=== PATIENT | female | born 1940 | race Caucasian/White ===

== ENCOUNTER 2023-10-03 10:35 | Outpatient (RCR) | payer OTHER, SELFPAY | END 2023-10-03 23:59 | disposition home or self-care (01) | LOC: RPT 10:35 | PROVIDERS: ATTENDING PHYSICIAN Internal Medicine | DX: F07.81 Postconcussional syndrome (principal); Z73.6 Limitation of activities due to disability; R26.2 Difficulty in walking, not elsewhere classified | CPT/HCPCS: 97110; 97162 ==

== ENCOUNTER → 2023-12-20 13:43 | Outpatient (REF) | payer OTHER, SELFPAY | LOC: RAD 13:43 | PROVIDERS: ATTENDING PHYSICIAN Internal Medicine | DX: S39.012S Strain of muscle, fascia and tendon of lower back, sequela (principal); M25.561 Pain in right knee | CPT/HCPCS: 72110; 73564 ==

== ENCOUNTER 2024-04-25 12:02 | Emergency (ER) | payer OTHER, SELFPAY ==
[2024-04-25 12:09] VITALS: BP 141/68
[2024-04-25 12:23] VITALS: BMI 27.7
--- NOTE | 2024-04-25 12:23 | ED.GENMED ---
History of Present Illness
General
Chief Complaint: Musculo-Skeletal Complaint
Time Seen by Provider: 04/25/24 12:23
History of Present Illness
History of Present Illness:
TIME OF INITIAL ENCOUNTER: 12:25 PM
HPI:
Patient came in for evaluation after a fall. Earlier today, she went back to her car and turned awkwardly and somehow fell. 'Everything landed on my left knee'. She had a left knee replacement in 2011 which concerned her so she came in here for
further evaluation. She has been able to ambulate. She also thinks that she 'wrenched my back' but denies any direct trauma to the back.
EXAM:
GENERAL: Well appearing in no distress
CERVICAL SPINE: No midline c-spine tenderness with excellent AROM
HEAD: No evidence of craniofacial trauma
CHEST: No chest wall tenderness, normal heart sounds
LUNGS: Equal lung sounds, no respiratory distress
ABDOMEN: No abdominal tenderness, no peritoneal signs
EXTREMITIES: Upper extremities and right lower extremity unremarkable. She has good active range of motion at the left hip and ankle. At the left knee, she does have some bony tenderness at the left tibial plateau region. There is some tenderness
over the patellar tendon. There is no significant tenderness over patella or distal femur or medial/lateral joint lines. She has very good active range of motion to flexion and extension.
NEURO: Excellent strength all extremities, appropriate mental status, normal speech/language
NUMBER AND COMPLEXITY OF PROBLEMS ADDRESSED AT THE ENCOUNTER
� Chronic conditions affecting care: Left knee replacement 2012, diabetes, high blood pressure
� Acute Exacerbation and/or Progression of Chronic Illness: This is an acute problem
� Differential Diagnosis includes: Periprosthetic fracture, contusion, ligamentous injury, tendon rupture
AMOUNT AND/OR COMPLEXITY OF DATA TO BE REVIEWED AND ANALYZED
� I performed an independent evaluation of and my interpretation is:
EKG:
CT:
X-rays: I personally reviewed x-rays of the left knee. I see no evidence for fracture, hardware in place.
Laboratory Studies:
Other:
� Review of other/old records: I reviewed records, the patient had a left TKA with Dr. Bryant in 2011 due to osteoarthritis
� Clinical information was obtained by an independent historian: I spoke to the daughter at bedside
� Prescriptions/Medications Considered but not given: Offered and considered analgesia however the patient states that she took analgesia prior to arrival and feels improved.
� Further testing considered but not performed:
RISK OF COMPLICATIONS AND/OR MORBIDITY OR MORTALITY OF PATIENT MANAGEMENT
� Social determinants of health affecting care: Lives at home
� Discussion with other providers:
� Escalation of care including admission/observation vs risk of discharge considered: The patient has very good active range of motion but does have tenderness near the left tibial plateau. X-rays relatively unremarkable and
showed no evidence for periprosthetic fracture.
ANY OTHER UPDATES:
12:38 PM: I reassessed patient. I see no evidence of x-ray but I told him I will call them later if radiology sees something I did not.
Past History
Past History
ED Past Medical History: Asthma, GERD, HTN, Hypercholesterolemia, NIDDM, Hypothyroidism and Other (Sleep apnea, anemia)
ED Past Surgical History: Orthopedic (Left hip replacement July 28, 2021)
Social History
Tobacco: Non-smoker
Alcohol: Occasional
Drug: None
Personal:
Living: with family
Family History
Family History: Diabetes and CAD
Phy Exam
Physical Exam
Physical Exam:
See HPI
Course
Orders/Labs/Results
Orders:
Orders
04/25/24 12:11
Knee, Left 4 or More Views [CR Knee - Left 4 Or More View*] Urgent
Comment:
Reason For Exam: pain, trauma
Vital Signs
Initial and Last Documented VS:
Initial Vital Signs
Temp Pulse Resp BP Pulse Ox
97.5 F 87 18 141/68 98
04/25/24 12:09 04/25/24 12:09 04/25/24 12:09 04/25/24 12:09 04/25/24 12:09
Last Documented Vital Signs
Temp Pulse Resp BP Pulse Ox
97.5 F 87 18 141/68 98
04/25/24 12:09 04/25/24 12:09 04/25/24 12:09 04/25/24 12:09 04/25/24 12:09
*Critical Care Note
Total Time (30-74mins, 75-104mins- exclusive of procedures): Not Applicable
ED Attending Note
-
Portions of this chart may have been created with voice recognition software.� Occasional wrong word or��sound alike� substitutions may have occurred due to the inherent limitations of voice recognition software.
Discharge Plan
Departure
Patient Disposition: Home (Routine Discharge)
Date of Disposition: 04/25/24
Time of Disposition: 12:37
Patient with high blood pressure during this ER visit?: Yes
Discharge Problem:
Contusion of knee, left
Instructions: Contusion (DC), BLOOD PRESSURE
Prescriptions:
No Action
therapeutic multivitamin Tablet
1 tab PO DAILY Qty: 0
levothyroxine [Synthroid] 112 mcg Tablet
112 mcg PO DAILY Qty: 0
albuterol sulfate 1 PUFF HFA aerosol inhaler
1 puff inhalation R Q4HPRN PRN (Reason: respiratory distress) Qty: 1 0RF
atorvastatin [Lipitor] 10 MG tablet
10 mg PO QPM
lisinopril 20 MG tablet
20 mg PO DAILY
loratadine 10 MG tablet
10 mg PO DAILY
omeprazole 20 MG tablet,delayed release (DR/EC)
20 mg PO DAILY
calcium carbonate 600 MG tablet
600 mg PO DAILY
hydrochlorothiazide 25 MG tablet
25 mg PO MOWEFR
fluticasone propionate [Flovent HFA] 1 PUFF HFA aerosol inhaler
1 puff inhalation R BID
aspirin 81 mg Tablet,Delayed Release (Dr/Ec)
81 mg PO HS
temazepam 30 mg Capsule
30 mg PO HS
metformin 500 MG tablet
1,000 mg PO BID
ferrous sulfate [FeroSul] 325 mg (65 mg iron) Tablet
325 mg PO DAILY Qty: 0 0RF
diclofenac sodium 3 % gel
1 applic topical BID Qty: 100 0RF
Referrals:
Marco Bryant MD [Active] - Follow up in 2-3 days
Activity Restrictions/Additional Instructions:
I will call you later if the radiologist sees something that I did not regarding her left knee x-ray. If pain persists, follow-up with Dr. Leija or Dr. Bryant.
Interventions
Interventions:
*Risk Screen - Suicide Last Done: 04/25/24 12:23
*General Assessment Last Done: 04/25/24 12:23
*Neglect/Abuse Screening Last Done: 04/25/24 12:23
ED- Fall Risk Assessment Last Done: 04/25/24 12:23
*ED COVID-19 Vaccine History Last Done: 04/25/24 12:23
*Nursing Disposition Last Done: 04/25/24 12:45
ED-Musculoskeletal Assessment Last Done: 04/25/24 12:23
Discharge Date and Time
Discharge Date/Time: 04/25/24 12:59
Print Language: SRI LANKAN
--- NOTE | 2024-04-25 12:34 | EDRN ---
Dr. Lau currently at the [facility] bedside
== END 2024-04-25 12:59 | disposition home or self-care (01) ==
LOC: EMR 12:02
PROVIDERS: EMERGENCY PHYSICIAN Emergency Medicine; FAMILY PHYSICIAN Internal Medicine
DX: S80.02XA Contusion of left knee, initial encounter (principal); W19.XXXA Unspecified fall, initial encounter; I10 Essential (primary) hypertension; Z96.652 Presence of left artificial knee joint
CPT/HCPCS: 99283; 73564

== ENCOUNTER → 2024-05-17 09:40 | Outpatient (REF) | payer OTHER, SELFPAY | LOC: HWWDC 09:40 | PROVIDERS: ATTENDING PHYSICIAN Internal Medicine | DX: Z12.31 Encounter for screening mammogram for malignant neoplasm of breast (principal) | CPT/HCPCS: 77063; 77067 ==

== ENCOUNTER 2024-06-08 15:18 | Emergency (ER) | payer OTHER, SELFPAY ==
[2024-06-08 15:26] VITALS: BP 164/75
--- NOTE | 2024-06-08 16:56 | ED.GENMED ---
History of Present Illness
General
Chief Complaint: Fall
Source: patient
Exam Limitations: none
Time Seen by Provider: 06/08/24 16:56
Nursing documentation reviewed up to this point in time: agreed with
History of Present Illness
History of Present Illness:
83-year-old female with a past medical history of asthma, hypertension, diabetes presents emergency department today with concerns of left elbow pain and left shoulder pain following a fall. Patient uses a walker to ambulate at baseline. Patient
states that she was walking out of [employer] today when she stepped down the stairs and lost her footing and fell slowly onto her left side, holding her walker at the time. Patient states that she did not hit her head or injure her neck during this.
She denies any neck pain or headache. She states that she has abrasion to her left elbow. She denies any loss of consciousness. Patient has not had any dizziness or lightheadedness prior to the fall. She denies chest pain or shortness of breath.
Patient states that she is able to ambulate with her walker now without difficulty. Patient states that the pain is not as severe and she has not had to take any medication however the pain did persist after the fall and so she decided to checked
out. Patient does not take any blood thinners.
Past History
Past History
ED Past Medical History: Asthma, GERD, HTN, Hypercholesterolemia, NIDDM, Hypothyroidism and Other (Sleep apnea, anemia)
ED Past Surgical History: Orthopedic (Left hip replacement July 28, 2021)
Social History
Tobacco: Non-smoker
Alcohol: Occasional
Drug: None
Personal:
Living: with family
Family History
Family History: Diabetes and CAD
Review of Systems
Review of Systems
All Other Systems: ROS reviewed and negative except as documented in HPI and ROS
Phy Exam
Physical Exam
Physical Exam:
General: Patient is well appearing and in no acute distress; non-toxic
Skin: Warm and dry, small abrasion noted to left elbow, no active
Head: Normocephalic, atraumatic, no palpable hematomas of the scalp
Eyes: Sclera non-icteric. EOMs intact. PERRLA.
Neck: No tenderness to palpation of the cervical spine
Cardiac: Regular rate and rhythm, no murmurs
Peripheral Vascular: No lower extremity swelling or edema
Pulm: Normal respiratory effort
Musculoskeletal: No tenderness to palpation of the left elbow and left shoulder. Full range of motion of left elbow and left shoulder, no pain with passive range of motion.
Neuro: CN II-XII intact, no focal neurologic deficits.
Psychiatric: Appropriate mood and affect.
Course
Orders/Labs/Results
Orders:
Orders
06/08/24 15:31
CR Elbow - Left Min 3 Views Urgent
Comment:
Reason For Exam: fall
CR Shoulder, Trauma - Left Urgent
Comment:
Reason For Exam: fall
Vital Signs
Initial and Last Documented VS:
Initial Vital Signs
Temp Pulse Resp BP Pulse Ox
98.1 F 87 20 164/75 94
06/08/24 15:26 06/08/24 15:26 06/08/24 15:26 06/08/24 15:26 06/08/24 15:26
Last Documented Vital Signs
Temp Pulse Resp BP Pulse Ox
98.1 F 87 20 164/75 94
06/08/24 15:26 06/08/24 15:26 06/08/24 15:26 06/08/24 15:26 06/08/24 15:26
MDM/Problems Addressed
Differential Diagnosis Includes:
see below
MDM/Problems Addressed:
NUMBER AND COMPLEXITY OF PROBLEMS ADDRESSED AT THE ENCOUNTER
� Chronic conditions affecting care: Asthma, hypertension, GERD
� Acute Exacerbation and/or Progression of Chronic Illness: n/a
� Differential Diagnosis includes: Heme fracture, distal radius fracture, ulnar fracture, musculoskeletal sprain/strain
AMOUNT AND/OR COMPLEXITY OF DATA TO BE REVIEWED AND ANALYZED
� I performed an independent evaluation of and my interpretation is:
X-rays: No acute fracture or dislocation
Laboratory Studies: No indication for lab work at this
Other:
� Review of other/old records: Reviewed records in [facility], reviewed ER physician documentation from 04/25/2022, patient for seen for contusion of the knee and discharge, review discharge summary from 12/15/2022 patient seen for syncope of
dehydration had KEMAR
� Clinical information was obtained by an independent historian: n/a
� Prescriptions/Medications Considered but not given:
� Further testing considered but not performed: n/a
RISK OF COMPLICATIONS AND/OR MORBIDITY OR MORTALITY OF PATIENT MANAGEMENT
� Social determinants of health affecting care: none
� Discussion with other providers: ER attending
� Escalation of care including admission/observation vs risk of discharge considered:
83-year-old female presents emergency department today with concerns of left shoulder pain and left elbow pain. On exam she is well-appearing no acute distress. She fell today while exiting [employer]. She not hit her head when she fell, she insists
this to be true. She is not taking blood thinners. She has no neck pain. She no dizziness prior to the fall. Physical exam she is a skin tear noted to the left elbow but has no pain with range of motion of the elbow and shoulder. She is no
palpable bony deformities. X-rays negative. Local wound care done. Patient stable for discharge. Patient does follow with Dr. Leija I recommended that she follow-up with him should she have any persistent symptoms.
*Critical Care Note
Total Time (30-74mins, 75-104mins- exclusive of procedures): Not Applicable
ED Attending Note
-
Portions of this chart may have been created with voice recognition software.� Occasional wrong word or��sound alike� substitutions may have occurred due to the inherent limitations of voice recognition software.
Discharge Plan
Departure
Patient Disposition: Home (Routine Discharge)
Date of Disposition: 06/08/24
Time of Disposition: 17:21
Patient with high blood pressure during this ER visit?: Yes
Condition: Good
Discharge Problem:
Left elbow pain, Fall, Left shoulder pain
Instructions: Wound Care (DC), Preventing falls in adults, BLOOD PRESSURE
Prescriptions:
No Action
therapeutic multivitamin Tablet
1 tab PO DAILY Qty: 0
levothyroxine [Synthroid] 112 mcg Tablet
112 mcg PO DAILY Qty: 0
albuterol sulfate 1 PUFF HFA aerosol inhaler
1 puff inhalation R Q4HPRN PRN (Reason: respiratory distress) Qty: 1 0RF
atorvastatin [Lipitor] 10 MG tablet
10 mg PO QPM
lisinopril 20 MG tablet
20 mg PO DAILY
loratadine 10 MG tablet
10 mg PO DAILY
omeprazole 20 MG tablet,delayed release (DR/EC)
20 mg PO DAILY
calcium carbonate 600 MG tablet
600 mg PO DAILY
hydrochlorothiazide 25 MG tablet
25 mg PO MOWEFR
fluticasone propionate [Flovent HFA] 1 PUFF HFA aerosol inhaler
1 puff inhalation R BID
aspirin 81 mg Tablet,Delayed Release (Dr/Ec)
81 mg PO HS
temazepam 30 mg Capsule
30 mg PO HS
metformin 500 MG tablet
1,000 mg PO BID
ferrous sulfate [FeroSul] 325 mg (65 mg iron) Tablet
325 mg PO DAILY Qty: 0 0RF
diclofenac sodium 3 % gel
1 applic topical BID Qty: 100 0RF
Referrals:
Anibal Chappell DO [Family Provider] -
Activity Restrictions/Additional Instructions:
PLEASE RETURN TO THE EMERGENCY DEPARTMENT SHOULD YOU EXPERIENCE CHEST PAIN, SHORTNESS OF BREATH, HEADACHE, DIZZINESS, INABILITY TO MOVE YOUR ELBOW OR SHOULDER, PERSISTENT BLEEDING, PALLOR, LOSS OF SENSATION IN YOUR ARM, OR ANY OTHER SIGNS OR
SYMPTOMS WORRISOME TO YOU.
Please follow-up with Dr. Leija should your symptoms fail to improve.
Interventions
Interventions:
*Risk Screen - Suicide Last Done: 12/14/24 15:26
*General Assessment Last Done: 06/08/24 15:26
*Neglect/Abuse Screening Last Done: 06/08/24 15:26
*Nursing Disposition Last Done: 06/08/24 18:00
ED-Musculoskeletal Assessment Last Done: 06/08/24 16:52
ED- Neurological Assessment Last Done: 06/08/24 16:52
ED-Skin Assessment Last Done: 06/08/24 16:52
Discharge Date and Time
Discharge Date/Time: 06/08/24 18:01
Print Language: AMHARIC
== END 2024-06-08 18:01 | disposition home or self-care (01) ==
LOC: EMR 15:18
PROVIDERS: EMERGENCY PHYSICIAN Student in an Organized Health Care Education/Training Program; FAMILY PHYSICIAN Internal Medicine
DX: S51.012A Laceration without foreign body of left elbow, initial encounter (principal); M25.512 Pain in left shoulder; W10.9XXA Fall (on) (from) unspecified stairs and steps, initial encounter; E78.00 Pure hypercholesterolemia, unspecified; I10 Essential (primary) hypertension; J45.909 Unspecified asthma, uncomplicated; E03.9 Hypothyroidism, unspecified; E11.9 Type 2 diabetes mellitus without complications; G47.30 Sleep apnea, unspecified; K21.9 Gastro-esophageal reflux disease without esophagitis
CPT/HCPCS: 99283; 73030; 73080

== ENCOUNTER 2024-09-20 17:26 | Observation (INO) | payer MEDICARE, SELFPAY ==
[2024-09-20] VITALS (9 sets, daily range): BP systolic 131–177; BP diastolic 60–158; BMI 33.8
--- NOTE | 2024-09-20 10:08 | ED.GENMED ---
History of Present Illness
<Sandor Dodd PA-C - Last Filed: 09/20/24 15:16>
General
Chief Complaint: Fainting/Passed Out
Source: patient
Time Seen by Provider: 09/20/24 09:58
History of Present Illness
History of Present Illness:
84-year-old female presents from home where she lives by herself after being found on the front porch by her neighbor. Patient states she must have gotten up throughout the night at some point. She found her self on the porch. Her neighbor found
her to be confused initially. She did not think she was at her own house where she was. She now feels clear. She notes pain to the lower back and right ankle. She may have fallen on the porch. She is not anticoagulated. History of
hfh-zvkipmz-sxopioptq diabetes. No other complaints
Past History
<Sadnor Dodd PA-C - Last Filed: 09/20/24 15:16>
Past History
ED Past Medical History: Asthma, GERD, HTN, Hypercholesterolemia, NIDDM, Hypothyroidism and Other (Sleep apnea, anemia)
ED Past Surgical History: Orthopedic (Left hip replacement July 28, 2021)
Social History
Tobacco: Non-smoker
Alcohol: Occasional
Drug: None
Personal:
Living: with family
Family History
Family History: Diabetes and CAD
Phy Exam
<Sandor Dodd PA-C - Last Filed: 09/20/24 15:16>
Physical Exam
Physical Exam:
General: Well-appearing female no acute respiratory distress
HEENT: Normocephalic atraumatic
Heart: RRR no murmurs
Lungs: Clear no wheeze
Musculoskeletal exam: Patient is tender over the lumbosacral junction on the right side as well as the right ankle.
Neurologic exam: Alert and oriented no facial asymmetry no drift on exam no dysarthria or aphasia
Abdomen is soft nontender nondistended
Course
<Sandor Dodd PA-C - Last Filed: 09/20/24 15:16>
Orders/Labs/Results
Orders:
Orders
09/20/24 09:33
Electrocardiogram (*1) Urgent
Reason for Study: Syncope
EKG- Treatment ONCE
09/20/24 10:06
CR Ankle - Right Min 3 Views * Urgent
Comment:
Reason For Exam: fall
CR Lumbar Spine 2 Or 3 Views Urgent
Comment:
Reason For Exam: back pain, fall
09/20/24 10:07
CT Head W/o Iv Contrast Urgent
Comment:
Reason For Exam: confusion, fall
09/20/24 10:33
Ketorolac [Toradol] 15 mg IV NOW STA
09/20/24 10:44
Alcohol Urgent
COVID-19 Antigen Urgent
Source: Nasal Swab
Complete Blood Count/With Diff Urgent
Comprehensive Metabolic Panel Urgent
Glycohemoglobin (HgbA1c) Urgent
Influenza A+B Rapid Molecular Urgent
NEGIN Source: Nasal Swab
Specimen Description:
09/20/24 13:59
Urinalysis Reflex To Culture Urgent
Date Specimen was Collected: 09/20/24
Time Specimen was Collected: 13:57
Urine Microscopic Reflex Cult Urgent
Urine Culture Urgent
NEGIN Source: U
Specimen Description:
Date Specimen was Collected: 09/20/24
Time Specimen was Collected: 13:57
09/20/24 14:58
CefTRIAXone [Rocephin] 1,000 mg IV NOW STA
09/20/24 15:17
Add On- LAB Urgent
Tests Added?: blood alcohol level, A1C
Abnormal Lab Results
09/20/24 09/20/24
10:44 13:59
RBC 3.76 L 10^6/uL
(4.20-5.40)
Hgb 10.6 L g/dL
(12.0-16.0)
Hct 31.9 L %
(37.0-47.0)
Absolute Neuts (auto) 7.8 H 10^3/uL
(1.4-6.5)
Absolute Lymphs (auto) 1.0 L 10^3/uL
(1.2-3.4)
Absolute Monos (auto) 0.8 H 10^3/uL
(0.1-0.6)
Neutrophils % 80.4 H %
(42.2-75.2)
Lymphocytes % 10.4 L %
(20.5-51.1)
BUN 18 H mg/dl
(7-17)
Glucose 138 H mg/dl
(70-99)
Urine Ketones 3+ A
(Negative)
Ur Occult Blood Reflex 1+ A
(Negative)
Urine Nitrite (Reflex) Positive A
(Negative)
Leukocyte Esterase Rfl 2+ A
(Negative)
Urine RBC 3-6 A /HPF
(0-2)
Urine WBC (Reflex) 26-30 A /HPF
(0-5)
Urine Bacteria (Reflex) Many A
(Negative)
Urine Albumin (Reflex) 2+ A
(Neg - Trace)
09/20/24 10:44
09/20/24 10:44
Vital Signs
Initial and Last Documented VS:
Initial Vital Signs
Temp Pulse Resp BP Pulse Ox
36.7 C 87 16 150/78 98
09/20/24 09:29 09/20/24 09:29 09/20/24 09:29 09/20/24 09:29 09/20/24 09:29
Last Documented Vital Signs
Temp Pulse Resp BP Pulse Ox
36.7 C 83 18 148/78 98
09/20/24 09:29 09/20/24 15:00 09/20/24 15:00 09/20/24 14:00 09/20/24 11:49
<Brenden Alfaro MD - Last Filed: 09/20/24 15:40>
Orders/Labs/Results
Orders:
Orders
09/20/24 09:33
Electrocardiogram (*1) Urgent
Reason for Study: Syncope
EKG- Treatment ONCE
09/20/24 10:06
CR Ankle - Right Min 3 Views * Urgent
Comment:
Reason For Exam: fall
CR Lumbar Spine 2 Or 3 Views Urgent
Comment:
Reason For Exam: back pain, fall
09/20/24 10:07
CT Head W/o Iv Contrast Urgent
Comment:
Reason For Exam: confusion, fall
09/20/24 10:33
Ketorolac [Toradol] 15 mg IV NOW STA
09/20/24 10:44
Alcohol Urgent
COVID-19 Antigen Urgent
Source: Nasal Swab
Complete Blood Count/With Diff Urgent
Comprehensive Metabolic Panel Urgent
Glycohemoglobin (HgbA1c) Urgent
Influenza A+B Rapid Molecular Urgent
NEGIN Source: Nasal Swab
Specimen Description:
09/20/24 13:59
Urinalysis Reflex To Culture Urgent
Date Specimen was Collected: 09/20/24
Time Specimen was Collected: 13:57
Urine Microscopic Reflex Cult Urgent
Urine Culture Urgent
NEGIN Source: U
Specimen Description:
Date Specimen was Collected: 09/20/24
Time Specimen was Collected: 13:57
09/20/24 14:58
CefTRIAXone [Rocephin] 1,000 mg IV NOW STA
09/20/24 15:17
Add On- LAB Urgent
Tests Added?: blood alcohol level, A1C
Abnormal Lab Results
09/20/24 09/20/24
10:44 13:59
RBC 3.76 L 10^6/uL
(4.20-5.40)
Hgb 10.6 L g/dL
(12.0-16.0)
Hct 31.9 L %
(37.0-47.0)
Absolute Neuts (auto) 7.8 H 10^3/uL
(1.4-6.5)
Absolute Lymphs (auto) 1.0 L 10^3/uL
(1.2-3.4)
Absolute Monos (auto) 0.8 H 10^3/uL
(0.1-0.6)
Neutrophils % 80.4 H %
(42.2-75.2)
Lymphocytes % 10.4 L %
(20.5-51.1)
BUN 18 H mg/dl
(7-17)
Glucose 138 H mg/dl
(70-99)
Urine Ketones 3+ A
(Negative)
Ur Occult Blood Reflex 1+ A
(Negative)
Urine Nitrite (Reflex) Positive A
(Negative)
Leukocyte Esterase Rfl 2+ A
(Negative)
Urine RBC 3-6 A /HPF
(0-2)
Urine WBC (Reflex) 26-30 A /HPF
(0-5)
Urine Bacteria (Reflex) Many A
(Negative)
Urine Albumin (Reflex) 2+ A
(Neg - Trace)
09/20/24 10:44
09/20/24 10:44
Vital Signs
Initial and Last Documented VS:
Initial Vital Signs
Temp Pulse Resp BP Pulse Ox
36.7 C 87 16 150/78 98
09/20/24 09:29 09/20/24 09:29 09/20/24 09:29 09/20/24 09:29 09/20/24 09:29
Last Documented Vital Signs
Temp Pulse Resp BP Pulse Ox
36.7 C 83 18 148/78 98
09/20/24 09:29 09/20/24 15:00 09/20/24 15:00 09/20/24 14:00 09/20/24 11:49
<Sandor Dodd PA-C - Last Filed: 09/20/24 15:16>
MDM/Problems Addressed
Differential Diagnosis Includes:
Patient with episode of confusion and weakness. Found her self on her front porch overnight. Will check labs. CT head x-ray lumbar spine and right ankle. Differential could include sleep walking episode versus infectious source such as UTI COVID
or flu or electrolyte abnormality
<Sandor Dodd PA-C - Last Filed: 09/20/24 15:16>
*Critical Care Note
Total Time (30-74mins, 75-104mins- exclusive of procedures): Not Applicable
<Sandor Dodd PA-C - Last Filed: 09/20/24 15:16>
Update Note
Update Note:
Workup consistent with UTI. CT head shows older stroke. Discussed with emergency room attending who saw the patient as well. Given her age and episode of encephalopathy overnight it is unclear the etiology of this but will keep in hospital for
further evaluation
ED Attending Note
<Sandor Dodd PA-C - Last Filed: 09/20/24 15:16>
-
Portions of this chart may have been created with voice recognition software.� Occasional wrong word or��sound alike� substitutions may have occurred due to the inherent limitations of voice recognition software.
<Brenden Alfaro MD - Last Filed: 09/20/24 15:40>
ED Attending Note
Patient seen and examined by attending physician: Yes
ED Attending Note:
I have seen and evaluated the patient with a [id number] encounter. I have spoken to the advance practicer provider and involved in the medical history, the physical exam, medical decision making.
Evaluation and management service: agree unless noted differently below.
Results interpretation: agree unless noted differently below.
Focused HPI: 84-year-old female with history as documented presents to the ER for evaluation after fall on her porch and episode of confusion/amnesia. Patient says that she was in her normal state of health last night. She says that this morning
she woke up in the very hr advisor and was on the ground on her front porch. She says initially she did not realize where she was she had to call someone who was walking by to help her up. She says that she asked them to bring her home and then
she realized that she was at her home on the front porch. Came to the emergency to be evaluated. She said she has some soreness in her shoulders, some right ankle pain and low back pain. She denies any headache. Mild nausea. She says she does
not feel confused any longer. She cannot recall any change in her vision or focal weakness/numbness. She denies any other complaints.
Physical exam: Awake and alert, oriented x 3. Marginal hypertension otherwise normal vitals. Her abdomen is soft and nontender to deep palpation. She has no chest wall tenderness. She has no cardiac rubs gallops or murmurs and regular rhythm on
auscultation. Her lungs sound clear to auscultation bilaterally. She has no bruising or abrasions to the back or flank she does have some mild paraspinal tenderness in the lumbar region. No cervical spine tenderness and her head is atraumatic.
She has some minor abrasions which appear old on the upper extremities. No signs of acute trauma to the lower extremities. Good range of motion in all extremities without apparent pain. She has no cranial nerve deficits, speech is fluid, no focal
motor or sensory deficits.
Medical Decision Makin-year-old female presents for evaluation after waking up on her porch confused this morning. She cannot recall how she got there, cannot recall falling. Vitals and exam as above. Labs sent off including a CBC which shows
marginal anemia, CMP no clinically significant abnormalities. Urinalysis concerning for infection versus contaminated sample. COVID and flu negative. CT head shows old stroke no acute finding. Likely lumbar compression fracture. X-ray of the
ankle no fracture. Unclear if this was TGA versus TIA versus some encephalopathy related to UTI. Will plan admit for observation, cover with Rocephin.
Discharge Plan
Departure
Patient Disposition: Admit
Date of Disposition: 09/20/24
Time of Disposition: 15:16
Presentation/result/management discussed w/ accepting MD/DO: Hospitalist
Discharge Problem:
Acute UTI
Prescriptions:
No Action
therapeutic multivitamin Tablet
1 tab PO DAILY Qty: 0
levothyroxine [Synthroid] 112 mcg Tablet
112 mcg PO DAILY Qty: 0
albuterol sulfate 1 PUFF HFA aerosol inhaler
1 puff inhalation R Q4HPRN PRN (Reason: respiratory distress) Qty: 1 0RF
atorvastatin [Lipitor] 10 MG tablet
10 mg PO QPM
lisinopril 20 MG tablet
20 mg PO DAILY
loratadine 10 MG tablet
10 mg PO DAILY
omeprazole 20 MG tablet,delayed release (DR/EC)
20 mg PO DAILY
calcium carbonate 600 MG tablet
600 mg PO DAILY
fluticasone propionate [Flovent HFA] 1 PUFF HFA aerosol inhaler
2 puff inhalation R BID
aspirin 81 mg Tablet,Delayed Release (Dr/Ec)
81 mg PO HS
zolpidem 10 mg Tablet
10 mg PO HS
Arnuity Ellipta 200 mcg/actuation Blister With Device
1 inh INHALATION DAILY
Referrals:
Anibal Chappell DO [Family Provider] -
Interventions
Interventions:
*Risk Screen - Suicide Last Done: 09/20/24 09:29
*General Assessment Last Done: 09/20/24 12:00
*Neglect/Abuse Screening Last Done: 09/20/24 09:29
*ED- Fall Risk Assessment Last Done: 09/20/24 10:58
*ED COVID-19 Vaccine History Last Done: 09/20/24 10:58
ED- Cardiac Assessment Last Done: 09/20/24 10:58
ED- Neurological Assessment Last Done: 09/20/24 10:58
Discharge Date and Time
Print Language: AFGHAN
[2024-09-20] MEDS: TORADOL 15 MG IV ×2 (10:46→18:01)
[2024-09-20 11:00] LABS: % Basophils 0.4 % (0-2); % Immature Granulocytes 0.3 % (0-0.5); % Lymphocytes 10.4 % (20.5-51.1); % Monocytes 8.5 % (1.7-9.3); % Neutrophils 80.4 % (42.2-75.2); Absolute Monocytes 0.8 10^3/uL (0.1-0.6); Absolute Neutrophils 7.8 10^3/uL (1.4-6.5); Hematocrit 31.9 % (37.0-47.0); Hemoglobin 10.6 g/dL (12.0-16.0); Mean Corp Hgb Conc. 33.2 g/dL (33.0-37.0); Mean Corpuscular Hgb 28.2 pg (27.0-31.0); Mean Corpuscular Volume 84.8 fL (81.0-99.0); Mean Platelet Volume 9.7 fL (7.4-10.4); Nucleated Red Blood Cells % 0 %; Platelet Count 215 10^3/uL (130-400); Red Blood Cell Count 3.76 10^6/uL (4.20-5.40); Red Cell Dist. Width 13.7 % (11.5-14.5); White Blood Cell Count 9.7 10^3/uL (4.8-10.8)
[2024-09-20 11:14] LABS: ALT (SGPT) 16 U/L (0-35); AST (SGOT) 29 U/L (14-36); Albumin 4.1 g/dl (3.5-5.0); Alkaline Phosphatase 71 U/L (38-126); Blood Urea Nitrogen 18 mg/dl (7-17); Calcium 10.1 mg/dl (8.4-10.2); Carbon Dioxide 25 mmol/L (22-30); Chloride 104 mmol/L (98-107); Estimated Creatinine Clearance 73 ml/min; Glucose 138 mg/dl (70-99); Potassium 4.1 mmol/L (3.5-5.1); Sodium 138 mmol/L (135-145); Total Bilirubin 0.8 mg/dl (0.2-1.3); Total Protein 6.5 g/dl (6.3-8.2); eGFR > 60.00
[2024-09-20 11:16] LABS: COVID-19 Antigen Negative (Negative)
[2024-09-20 14:05] LABS: Urine Albumin 2+ (Neg - Trace); Urine Bilirubin Negative (Negative); Urine Character Slightly Cloudy (Clear); Urine Color Yellow; Urine Glucose Negative (Negative); Urine Ketone 3+ (Negative); Urine Leukocyte 2+ (Negative); Urine Nitrite Positive (Negative); Urine Occult Blood 1+ (Negative); Urine Urobilinogen 1+ (Neg - 1+)
[2024-09-20 14:27] LABS: Urine Squamous Cell >30 /LPF (Few)
[2024-09-20 14:29] LABS: Urine Amorphous Seen; Urine White Cell 26-30 /HPF (0-5)
[2024-09-20 14:30] LABS: Urine Bacteria Many (Negative)
[2024-09-20] MEDS: ROCEPHIN 1000 MG IV (15:12)
--- NOTE | 2024-09-20 15:27 | HPS.HSE ---
Addendum entered and electronically signed by Kymberly Byers MD 09/20/24 18:30:
I personally performed a history and physical exam of the patient and discussed management with the resident. I reviewed the resident's note and agree with the documented findings and plan of care HPI/CC.
GENERAL: well developed, well nourished, female in no apparent distress
HEENT: NC/AT
HEART: regular rate and rhythm, +S1, +S2
LUNGS : clear to auscultation bilaterally
ABDOM: soft, nontender, nondistended, + bowel sounds
EXT: no cyanosis, clubbing--mild swelling to right leg--left leg with knee replacement scar c/d/i
NEUROLOGIC: grossly intact
Toxic metabolic encephalopathy--resolved-- most likely secondary to polypharmacy and medication side effects--counseled on limiting opioid use, and caution with multiple medications including opioids, zolpidem, benzodiazepine as well as
alcohol--less likely due to infection as her mental status improved prior to the administration of antibiotics; less likely stroke as head CT negative for acute intracranial stroke/hemorrhage and no focal neurologic deficits--while in hospital,
avoid opioids if possible and reduced dose of zolpidem
Osteoarthritis, chronic pain, fall with chronic ambulatory dysfunction--x-rays obtained in ED showed vertebral compression fracture and chronic changes, nothing requiring acute intervention--physical exam consistent with arthritic inflammation, less
suspicious of DVT but will check venous ultrasound --will observe overnight to provide pain management and evaluation by physical therapy in a.m. to determine outpatient needs--standing Tylenol, Toradol; avoid opioid use
Abnormal urinalysis vs asymptomatic bacteruria--UA more consistent with contamination/not a clean-catch --doubt UTI contributing to encephalopathy --s/p 1 dose of ceftriaxone in ED, no need to continue antibiotics
Diabetes type 2, [id number]--Home regimen includes metformin --will check A1c, consider Accu-Cheks/ISS, continue diabetic diet
Hypertension--continue home lisinopril with holding parameters
Hypothyroidism--continue home Synthroid
Asthma--continue home inhalers or equivalent
Hyperlipidemia--continue home atorvastatin
Insomnia--caution with home zolpidem dose, will reduce dose inpatient
Sleep apnea--continue home CPAP
Anticipate discharge tomorrow, pending PT OT eval
DVT prophylaxis: Lovenox
code status -- DNR
Original Note:
Family Physician
-
Family Physician: Anibal Chappell
Chief Complaint
-
Confusion and fall last night
History of Present Illness
84-year-old female with past medical history of osteoarthritis s/p multiple Ortho surgeries, hypertension, diabetes, hyperlipidemia who presents to the emergency room from home (lives alone) with her daughter for evaluation of confusion/fall last
night. Last night, she had an episode of confusion where she thought a family member was present and told her to wait on the porch of her house. At that time she did not recognize that this was her home, and she does not know how long she was
standing outside in a nightgown. She was not dressed for the weather and remembers feeling cold and trying to cover herself with the patio cushions for warmth. Her next memory is calling out for help because she was on the ground and could not get
up. She does not know how she fell, she does not remember feeling in pain at that time, and does not know if she hit her head. A bystander helped her up and called the police for assistance. At that time she did not recognize her house from the
outside, but once she got inside knew it was her home. She declined to go to the hospital, and the police called her daughter around 4:40 AM to report the situation. She says that she has only slept walked once in her life: After her hip surgery
when she took hydrocodone 3 years ago. Upon further questioning, she admits to increasing pain of her right leg over the past week or 2, for which she was just prescribed tramadol on Monday. She tried the tramadol but had side effects like
itching, so on night she switched to hydrocodone which she had leftover from her hip surgery. However she is not positive if she took this or how many she took. Of note she takes Ambien nightly for chronic insomnia.
Today, she reports feeling at her baseline cognitive status. Her daughter at bedside agrees. Review of systems negative-- denies fevers, chills, dizziness, chest pain, palpitations, shortness of breath, abdominal pain, nausea, vomiting, diarrhea,
constipation, dysuria. She does report worsening pain in her right leg, for which she is seeing orthopedics outpatient and scheduled for an MRI on .
Medical History
Past Medical History
Past Medical History: Reports Asthma, GERD, HTN, Hypercholesterolemia, Hypothyroidism, NIDDM and Other (Sleep apnea, anemia, kidney stone)
Past Surgical History: Reports Gynocological, Orthopedic (Left hip, right hip, left knee) and Tonsilectomy
Social History
Tobacco: Non-smoker
Alcohol: Occasional (No alcohol use contributing to current episode of confusion)
Drug: None
Living: Alone
Family History
Family History: Not pertinent
Allergies / Home Medications
Allergies reflects when Allergies were last updated in [facility].
Home Medications with original date entered in [facility]
Allergy/Medication List:
Allergies
Allergy/AdvReac Type Severity Reaction Status Date / Time
No Known Allergies Allergy Verified 09/20/24 09:32
Home Medications
levothyroxine 112 mcg tablet (Synthroid) 112 mcg PO DAILY Thyroid ##0 10/11/11
therapeutic multivitamin 1 tab PO DAILY Supplement ##0 10/11/11
albuterol sulfate 90 mcg/actuation aerosol inhaler 1 puff inhalation R Q4HPRN PRN respiratory distress ##1 11/04/15
atorvastatin 10 mg tablet (Lipitor) 10 mg PO QPM High cholesterol 07/07/21
calcium carbonate 600 mg PO DAILY Supplement 07/07/21
fluticasone propionate 110 mcg/actuation HFA aerosol inhaler (Flovent HFA) 2 puff inhalation R BID Lung/breathing issues 07/07/21
lisinopril 20 mg tablet 20 mg PO DAILY Blood pressure 07/07/21
loratadine 10 mg tablet 10 mg PO DAILY Allergies 07/07/21
omeprazole 20 mg tablet,delayed release 20 mg PO DAILY Gastrointestinal issue 07/07/21
aspirin 81 mg tablet,delayed release 81 mg PO HS Blood Clot Prevention/Tx 12/13/22
fluticasone furoate 200 mcg/actuation blister powder for inhalation (Arnuity Ellipta) 1 inh inhalation DAILY 09/20/24
zolpidem 10 mg tablet 10 mg PO HS 09/20/24
Review of Systems
-
History Source: Patient
Constitutional: Reports Sleep Disturbance (See HPI); Denies Fever or Chills
EENT: Reports No Symptoms
Respiratory: Reports No Symptoms; Denies Cough, Hemoptysis or Trouble Breathing
Cardiac: Reports No Symptoms; Denies Chest Pain, Palpitations or Syncope
Abdomen/GI: Reports No Symptoms; Denies Abdominal Pain, Nausea, Vomiting, Diarrhea or Constipated
: Reports No Symptoms; Denies Dysuria, Flank Pain or Difficulty Voiding
Musculoskeletal: Reports See HPI
Skin: Reports No Symptoms and Itching (Resolved)
Neurological: Reports No Symptoms; Denies Dizzy, Headache, Weakness or Numbness
Endocrine: Reports No Symptoms
Hematologic/Lymphatic: Reports No Symptoms
Psych: Reports See HPI
Physical Exam
Vital Signs
Vital Signs
Temp Pulse Resp BP Pulse Ox
98.0 F 83 18 148/78 98
09/20/24 09:29 09/20/24 15:00 09/20/24 15:00 09/20/24 14:00 09/20/24 11:49
Physical Exam
General: Well Developed, Well Nourished, No Apparent Distress, Comfortable, Conversant and Obese
HEENT: NormoCephalic and Atraumatic
Respiratory: Clear (Anterior lung pretty) and Non Labored Respirations
Cardiac: S1/S2 and Regular Rhythm
GI: Soft, Non Tender, Non Distended and Normal Bowel Sounds
Musculoskeletal: No Clubbing, No Cyanosis and Edema, Right Lower Extremity (Diffuse swelling of right lower extremity with some erythema)
Skin: Warm and Dry
Neuro: Awake, Alert, AO x 3 and Nonfocal/grossly intact; No Slurred Speech, Facial Droop or Tremors
Psych: Calm and Intact Judgment/Insight; No Confused
Laboratory Results
-
09/20/24 10:44
09/20/24 10:44
Laboratory Results
Total Bilirubin 0.8 mg/dl (0.2-1.3) 09/20/24 10:44
AST 29 U/L (14-36) 09/20/24 10:44
ALT 16 U/L (0-35) 09/20/24 10:44
Alkaline Phosphatase 71 U/L (38-126) 09/20/24 10:44
Data Reviewed
-
Diagnostic Radiology: Image Personally Visualized and interpreted and Report Reviewed by me
Lab Data: Labs Reviewed by me and Discussed with Physician
Impression/Plan
-
84-year-old female presenting for episode of confusion/fall
Toxic metabolic encephalopathy--resolved-- most likely secondary to polypharmacy and medication side effects--counseled on limiting opioid use, and caution with multiple medications including opioids, zolpidem, benzodiazepine as well as
alcohol--less likely due to infection as her mental status improved prior to the administration of antibiotics; less likely stroke as head CT negative for acute intracranial stroke/hemorrhage and no focal neurologic deficits--while in hospital,
avoid opioids if possible and reduced dose of zolpidem
Osteoarthritis, chronic pain, fall with chronic ambulatory dysfunction--x-rays obtained in ED showed vertebral compression fracture and chronic changes, nothing requiring acute intervention--physical exam consistent with arthritic inflammation, less
suspicious of DVT but will check venous ultrasound --will observe overnight to provide pain management and evaluation by physical therapy in a.m. to determine outpatient needs--standing Tylenol, Toradol; avoid opioid use
Abnormal urinalysis vs asymptomatic bacteruria--UA more consistent with contamination/not a clean-catch than cystitis--doubt UTI contributing to encephalopathy as medication side effects above explained presentation better--s/p 1 dose of ceftriaxone
in ED, no need to continue antibiotics
Diabetes type 2, [id number]--Home regimen includes metformin --will check A1c, consider Accu-Cheks/ISS, continue diabetic diet
Hypertension--continue home lisinopril
Hypothyroidism--continue home Synthroid
Asthma--continue home inhalers or equivalent
Hyperlipidemia--continue home atorvastatin
Insomnia--caution with home zolpidem dose, will reduce dose inpatient
Sleep apnea--continue home CPAP
Anticipate discharge tomorrow, pending PT OT eval
DVT prophylaxis: Lovenox
[2024-09-20 16:12] LABS: Alcohol None Detected
--- NOTE | 2024-09-20 17:16 | EDRN ---
Pt says she went outside to her porch sometime early this morning and she does not remember doing so. Pt was in her nightgown, assumes she fell because she was on the ground. Pt looked at her watch and knows she was on the ground at 0300. She saw
someone walking by couple hours later and asked the person to call 911. EMS arrived, pt assisted into her house. Pt declined transport to hospital at that time. Later, pt noted aches and pains and a neighbor brought her to ED for evaluation. Pt
has chronic R knee pain, says she needs to get her knee replaced. Pt ices R knee at nighttime. Pain has been hindering pt's daily activities. Slight pain R lateral foot where she sustained some abrasions. Pt denies cp, sob, abd pain, n/v,
headache, dizziness, weakness, urinary symptoms, fever/chills/cough, neck pain. Back is sore.
[2024-09-20] MEDS: LOVENOX 40 MG SC (20:40)
[2024-09-20] MEDS: LIPITOR 10 MG PO (20:41)
[2024-09-20] MEDS: AMBIEN 5 MG PO (20:41)
[2024-09-20] MEDS: TYLENOL 650 MG PO (20:41)
[2024-09-20] MEDS: GLUCOPHAGE 1000 MG PO (20:41)
[2024-09-20] MEDS: ASPIR LOW (ENTERIC COATED) 81 MG PO (20:42)
[2024-09-20] MEDS: REFRESH EYE DROPS (PF) 1 DROPS OPHTH (20:42)
[2024-09-20] MEDS: LIPITOR PO (21:22)
[2024-09-20 23:23] LABS: Glucose - Point of Care 110 mg/dl (70-99)
[2024-09-21] MEDS: TORADOL 15 MG IV ×2 (00:18→12:13)
[2024-09-21] MEDS: TYLENOL 650 MG PO ×3 (00:18→12:23)
[2024-09-21] MEDS: TORADOL IV (05:24)
[2024-09-21] MEDS: TYLENOL PO (05:24)
[2024-09-21 07:26] LABS: Hematocrit 32.7 % (37.0-47.0); Hemoglobin 10.7 g/dL (12.0-16.0); Mean Corp Hgb Conc. 32.7 g/dL (33.0-37.0); Mean Corpuscular Hgb 28.2 pg (27.0-31.0); Mean Corpuscular Volume 86.3 fL (81.0-99.0); Mean Platelet Volume 9.9 fL (7.4-10.4); Platelet Count 216 10^3/uL (130-400); Red Blood Cell Count 3.79 10^6/uL (4.20-5.40)
[2024-09-21] MEDS: FLOVENT 110 MCG INHALER 2 PUFF INH (07:33)
[2024-09-21 07:41] LABS: Blood Urea Nitrogen 22 mg/dl (7-17); Calcium 9.9 mg/dl (8.4-10.2); Carbon Dioxide 28 mmol/L (22-30); Chloride 105 mmol/L (98-107); Estimated Creatinine Clearance 55 ml/min; Glucose 125 mg/dl (70-99); Magnesium 1.5 mg/dl (1.6-2.3); Potassium 4.2 mmol/L (3.5-5.1); Sodium 141 mmol/L (135-145); eGFR > 60.00
[2024-09-21 07:45] LABS: Glucose - Point of Care 134 mg/dl (70-99)
[2024-09-21 07:49] VITALS: BP 139/68
[2024-09-21] MEDS: GLUCOPHAGE 1000 MG PO (08:46)
[2024-09-21] MEDS: THERAGRAN 1 TABLET PO (08:47)
[2024-09-21] MEDS: PROTONIX 20 MG PO (08:47)
[2024-09-21] MEDS: OSCAL CAL 500 500 MG PO (08:47)
[2024-09-21] MEDS: CLARITIN 10 MG PO (08:47)
[2024-09-21] MEDS: ZESTRIL 20 MG PO (08:47)
[2024-09-21] MEDS: REFRESH EYE DROPS (PF) 1 DROPS OPHTH (08:48)
--- NOTE | 2024-09-21 08:53 | W.PN.HOSP.TC ---
Addendum entered and electronically signed by Kymberly Byers MD 09/21/24 14:44:
I saw and evaluated the patient independently. I reviewed the resident�s note and agree with findings and plan as documented by Dr. Whitman.
GENERAL: well developed, well nourished, female in no apparent distress
HEENT: NC/AT
HEART: regular rate and rhythm, +S1, +S2
LUNGS : clear to auscultation bilaterally
ABDOM: soft, nontender, nondistended, + bowel sounds
EXT: no cyanosis, clubbing--mild swelling to right leg--left leg with knee replacement scar c/d/i
NEUROLOGIC: grossly intact
Toxic metabolic encephalopathy--resolved-- most likely secondary to polypharmacy and medication side effects--counseled on limiting opioid use, and caution with multiple medications including opioids, zolpidem, benzodiazepine as well as
alcohol--less likely due to infection as her mental status improved prior to the administration of antibiotics; less likely stroke as head CT negative for acute intracranial stroke/hemorrhage and no focal neurologic deficits--while in hospital,
avoid opioids if possible and reduced dose of zolpidem
Osteoarthritis, chronic pain, fall with chronic ambulatory dysfunction--x-rays obtained in ED showed vertebral compression fracture and chronic changes, nothing requiring acute intervention--physical exam consistent with arthritic inflammation, less
suspicious of DVT but will check venous ultrasound --pt moving better by her own admission as pain is better--standing Tylenol, Toradol; avoid opioid use--therapy rec SNF but suspect will not need--pt does not wish to go either--OK for d/c with VN/PT
asymptomatic bacteruria--UA more consistent with contamination/not a clean-catch --urine culture shows 100K colonies of E. coli--s/p 1 dose of ceftriaxone in ED, will send home on 3 days of keflex
Diabetes type 2, [id number]--Home regimen includes metformin -- A1c 7.5-- continue diabetic diet
Hypertension--continue home lisinopril with holding parameters
Hypothyroidism--continue home Synthroid
Asthma--continue home inhalers or equivalent
Hyperlipidemia--continue home atorvastatin
Insomnia--caution with home zolpidem dose, will reduce dose inpatient
Sleep apnea--continue home CPAP
DVT prophylaxis: Lovenox
code status -- DNR
Original Note:
Today's Communication/Plan
-
Discharge home with home health
Assessment / Plan
Assessment / Plan
84-year-old female presenting for episode of confusion/fall
Toxic metabolic encephalopathy--resolved-- most likely secondary to polypharmacy and medication side effects--counseled on limiting opioid use, and caution with multiple medications including opioids, zolpidem, benzodiazepine as well as
alcohol--less likely due to infection as her mental status improved prior to the administration of antibiotics; less likely stroke as head CT negative for acute intracranial stroke/hemorrhage and no focal neurologic deficits--stable for discharge
home
Osteoarthritis, chronic pain, fall with chronic ambulatory dysfunction--x-rays obtained in ED showed vertebral compression fracture and chronic changes, nothing requiring acute intervention--RLE US showed Zaidi's cyst, negative for DVT--pain control
is significantly better with standing Tylenol, standing Toradol here. Suspect acute ambulatory dysfunction is more likely due to significant uncontrolled pain as well as TME. Reviewed with patient and family PTs recommendation to go to SNF;
however they feel confident in patient's ability to go home with home health. This is reasonable, and she can continue outpatient workup with orthopedic surgery of her chronic leg pain.--Continue standing Tylenol, will provide 3 days of standing
ibuprofen 400 mg. She has MRI scheduled for . Follow-up with Ortho.
Asymptomatic bacteruria vs UTI--UA consistent with contamination/not a clean-catch; however urine culture positive for E. coli >100,000 cfu--doubt UTI contributing to encephalopathy as medication side effects above explained presentation better--s/p
1 dose of ceftriaxone in ED, and will continue 4 additional days of Keflex twice daily
Hypomagnesemia-supplement PRN
Diabetes type 2, [id number]--A1c 7.5, resume home metformin, follow-up with PCP
Hypertension--continue home lisinopril
Hypothyroidism--continue home Synthroid
Asthma--continue home inhalers or equivalent
Hyperlipidemia--continue home atorvastatin
Insomnia--caution with home zolpidem dose, will reduce dose
Sleep apnea--continue home CPAP
Discharge home today with home health
DVT prophylaxis: Lovenox
Anticipated Discharge: Today
Subjective/Interval History
-
Date of Service: September 21, 2024
No acute events overnight. Still reports some pain especially with ambulation in her right leg, but she reports that this is significantly improved compared to yesterday. She also reports improvement in the swelling of her right leg. She did not
feel any confusion overnight or today. Review of systems negative-- denies dizziness, chest pain, shortness of breath, abdominal pain, nausea, vomiting, diarrhea, constipation. Tolerating oral diet.
Objective Data
-
Labs:
Laboratory Results
09/21/24
06:53
WBC 6.0
Hgb 10.7 L
Hct 32.7 L
Plt Count 216
Sodium 141
Potassium 4.2
Chloride 105
Carbon Dioxide 28
BUN 22 H
Creatinine 0.8
Glucose 125 H
Calcium 9.9
09/20/24 13:59 Urine Urine Culture - Preliminary
Escherichia coli
09/20/24 10:44 Nasal Swab Influenza Types A & B (ALINA) - Final
Negative for Influenza A & B, NAAT
Negative results must be combined with clinical observations
and patient history.
Nucleic Acid Amplification test (NAAT)performed on the
[employer] NOW platform.
Vital Signs:
Vital Signs
Temp Pulse Resp BP Pulse Ox
98.2 F 63 21 139/68 96
09/21/24 07:49 09/21/24 07:49 09/21/24 07:49 09/21/24 07:49 09/21/24 07:49
I&O
09/20/24 09/21/24 09/22/24
06:59 06:59 06:59
Intake Total 240 / 240
Balance 240 / 240
Review of Systems
-
History Source: Patient
All other systems: Reviewed and negative
Physical Exam
-
General: Well Developed, Well Nourished, No Apparent Distress, Comfortable, Conversant and Obese; Negative Fever, Chills or Sweats
HEENT: Normocephalic and Atraumatic
Respiratory: Clear to Auscultation and Non Labored Respirations; Negative Wheezes, Rales or Rhonchi
Cardiac: Regular Rhythm and S1/S2
GI: Soft, Nontender and Nondistended
Musculoskeletal: No Clubbing, No Cyanosis and Edema, Right Lower Extrem (Significantly improved)
Skin: Warm and Dry
Neuro: Awake, Alert, AO x 3 and Nonfocal/Grossly Intact
Psych: Calm
Data Reviewed
-
Diagnostic Radiology: Image personally visualized and interpreted and Report Reviewed by me
CT Scan: Image personally visualized and interpreted and Report Reviewed by me
Ultrasound: Report Reviewed by me
Labs: Labs Reviewed by me
[2024-09-21 09:48] LABS: Glycohemoglobin (HgbA1c) 7.5 % (4.0-5.6)
[2024-09-21 10:19] VITALS: BP 158/76; PULSE 71; O2SAT 99
--- NOTE | 2024-09-21 10:49 | CM ---
CM met with pt at bedside.
Pt reports living alone in a 1SH with 2 KORIN. Prior to admission ind with amb using RW and adl's. 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
HC hx with [facility]. No SNF history.
Confirmed PCP is Anibal Chappell and pharmacy is [facility].
MICHELE completed and original placed on chart.
If VN is recc'd, offered choice of agency and preference would be for [facility].
CM to follow and watch for needs. DC Dispo anticipate home with VN.
[2024-09-21 11:27] LABS: Glucose - Point of Care 117 mg/dl (70-99)
[2024-09-21] MEDS: KEFLEX 500 MG PO (12:14)
[2024-09-21] MEDS: MAGNESIUM SULFATE 100 IV (12:37)
--- NOTE | 2024-09-21 14:59 | W.DCSUMMARY ---
Addendum entered and electronically signed by Kymberly Byers MD 09/21/24 15:20:
Read, reviewed, and agree. See same day progress note for additional details. Time spent coordinating care, DC planning, review of DC plan of care with resident, transition of care, review of records in EMR, med rec, consults, notes, d/w
consultants, nursing, family, and CM = 31 minutes
Original Note:
Discharge Summary
Discharge Data
Date of Admission: 09/20/24
Date of Discharge: 09/21/24
-
Pending Results: Yes
Additional Pending Results:
09/20/24 13:59 Urine Urine Culture - Preliminary
Escherichia coli
Hospital Course
CC to PCP Anibal Chappell
Discharging Physician : Dr. Whitman/Dr. Byers
Disposition : Home with home health
Primary care physician : Anibal Chappell
Principal Discharge diagnosis :
Toxic metabolic encephalopathy, most likely due to polypharmacy or medication side effects
Acute on chronic ambulatory dysfunction
Urinary tract infection
Complex zaidi's cyst (R)
Hypomagnesemia
Chronic Discharge diagnosis :
Osteoarthritis, chronic pain
Insomnia
Diabetes type 2
Hypertension
Hypothyroidism
Asthma
Hyperlipidemia
Sleep apnea
Chronic anemia
Hospital Course :
Presented to emergency room for evaluation of an episode of confusion and fall the night prior. Her toxic metabolic encephalopathy resolved prior to her admission. Given her history, this was most likely secondary to polypharmacy and medication
side effects especially of hydrocodone in combination with zolpidem. In the ED, she was found to have abnormal urinalysis, and preliminary culture showed E. coli. She received 1 dose of ceftriaxone, and will continue twice daily Cefalexin for
treatment at discharge. For her right lower extremity pain and swelling thought to be due to arthritic inflammation, she received standing Tylenol and IV Toradol with significant improvement, and opioids were avoided entirely. She will continue
evaluation of her leg pain with orthopedic surgery outpatient as previously planned. Her other chronic conditions remained stable. On day of discharge she was stable. She was discharged home with home health.
Important imaging findings :
Peripheral vascular ultrasound 09/20/24
IMPRESSION:
No evidence of DVT of the right lower extremity.
Findings suggesting a mildly complex Zaidi's cyst.
Head CT 09/20/24
IMPRESSION:
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
No CT evidence for acute intracranial abnormality.
Lumbar spine xray 09/20/24
Superior endplate compression deformity of L3 appears to have slightly progressed since previous examination, with slight progression of anterior loss of height. This could represent an acute to subacute component of the L3 fracture, now with
approximately 20% anterior loss of height. Please correlate with localized symptoms.
Minimal anterior loss of height of T12 appears stable with a small Schmorl's node in the superior endplate, also stable.
Grade 1 spondylolisthesis at L5-S1, which appears stable.
Mild to moderate changes of degenerative disc disease, greatest at L5-S1, L2-3, and L1-2, and also stable.
Vascular calcification with no aortic aneurysm.
Bilateral hip prostheses are present.
IMPRESSION: Superior endplate compression deformity of L3 appears to have slightly progressed since previous radiographs of November 2023.
See above discussion.
R ankle xray 09/20/24
IMPRESSION: No evidence of acute fracture or dislocation.
Procedure findings : N/A
Discharge Plan
-
Patient Disposition: Home with Home Care
Discharge Diagnosis/Procedures: Toxic metabolic encephalopathy, most likely due to polypharmacy or medication side effects
Acute on chronic ambulatory dysfunction
Urinary tract infection
Complex zaidi's cyst (R)
Hypomagnesemia
Osteoarthritis, chronic pain
Insomnia
Diabetes type 2
Hypertension
Hypothyroidism
Asthma
Hyperlipidemia
Sleep apnea
Chronic anemia
Condition: Good
Diet: Low Cholesterol and Diabetic, Carb Controlled
Activity: As tolerated, With Walker and No strenuous activity
Driving Restrictions: No driving
Bathing Restrictions: OK to Shower
Blood Work: Repeat BMP, magnesium, CBC with primary care
Other Services: VN, PT and OT
Activity Restrictions/Additional Instructions:
Follow up with your primary care to repeat blood work to check your magnesium level and anemia studies.
Continue to use your walker and work with physical therapy.
Follow up with the orthopedic surgeon after your MRI.
Instructions: Preventing falls in adults, How to give naloxone, Taking opioids safely, BLOOD PRESSURE
Referrals:
Anibal Chappell, DO [Family Provider] - in less than 1 week (Call your Primary Care Provider to schedule follow up appointment within 1 week of hospitalization.)
Additional Discharge Medication Instructions: For your urinary tract infection:
CEPHALEXIN- Take 1 tablet two times per day until you finish the prescription
For your pain:
ACETAMINOPHEN- Take 2 tablets (650mg total per dose) every 4 hours while you are awake
IBUPROFEN- Take 1 tablet (400mg) every 8 hours. Take this medication with food. Do not take on an empty stomach.
Your dose of zolpidem has decreased from 10mg to 5mg.
Do not take hydrocodone because this is most likely what caused your confusion and hospital visit. Talk to your doctors about ways to manage your pain and avoiding opioids as much as possible. These have very serious side effects including
confusion, constipation, and respiratory depression (stop breathing). If you take any opioids in the future, never use alcohol or benzodiazepines (like alprazolam) within the same day. This combination is very dangerous and increases the risk that
it may stop your breathing and cause . Ask your doctor or pharmacist about naloxone, which can be life-saving if an overdose happens.
Do not take alprazolam until you talk to the prescribing doctor.
If you have any medication questions or need refills, please call your Primary Care.
Prescriptions:
New
acetaminophen 325 mg Tablet
650 mg PO Q4 Qty: 0 0RF
polyethylene glycol 3350 17 gram Powder In Packet
17 g PO DAILYPRN PRN (Reason: constipation) Qty: 0 0RF
cephalexin 500 mg Capsule
500 mg PO BID 4 Days Qty: 8 0RF
ibuprofen 400 mg tablet
400 mg PO Q8H 3 Days Qty: 9 0RF
zolpidem 5 mg tablet
5 mg PO HS PRN (Reason: insomnia) Qty: 14 0RF
Continued
therapeutic multivitamin Tablet
1 tab PO DAILY Qty: 0
levothyroxine [Synthroid] 112 mcg Tablet
112 mcg PO MOTUWETHFRSA Qty: 0
albuterol sulfate 1 PUFF HFA aerosol inhaler
1 puff inhalation R Q4HPRN PRN (Reason: respiratory distress) Qty: 1 0RF
atorvastatin [Lipitor] 10 MG tablet
10 mg PO BID
lisinopril 20 MG tablet
20 mg PO DAILY
loratadine 10 MG tablet
10 mg PO DAILY
omeprazole 20 MG tablet,delayed release (DR/EC)
20 mg PO DAILY
calcium carbonate 600 MG tablet
600 mg PO DAILY
aspirin 81 mg Tablet,Delayed Release (Dr/Ec)
81 mg PO HS
metformin 1,000 mg Tablet
1,000 mg PO BID Qty: 0 0RF
olopatadine 0.2 % Drops
1 drp BOTH EYES DAILY Qty: 0 0RF
Arnuity Ellipta 200 mcg/actuation Blister With Device
1 inh INHALATION R DAILY Qty: 0 0RF
Blink Tears 0.25 % Drops
1 drp ophthalmic (eye) TID Qty: 0 0RF
Rx Instructions:
both eyes
Held
alprazolam 0.25 mg Tablet
0.25 mg PO BIDPRN PRN (Reason: anxiety)
Hold Instructions: Talk to your doctor before restarting this medication
Discontinued
zolpidem 10 mg Tablet
10 mg PO HS
Discharge Orders:
Discharge Patient (As Directed); Ordered 09/21/24
Ordered By: Emelyn Whitman
Discharge Date and Time
Print Language: MONGOLIAN
[2024-09-21 15:39] VITALS: BP 148/65
--- NOTE | 2024-09-23 15:00 | W.PN.UPDATE ---
Update Note
Progress Note Update
Patient recently discharged from hospital with treatment of E Coli UTI with keflex. Sensitivity results show resistance to cefazolin, sensitive to tmp/smx. Rx double strength BID bactrim x3 days. Spoke with patient on phone-- advised her to stop
keflex and begin bactrim. She is agreeable, says a friend or family member will pickup driver medication for her.
09/20/24 13:59 Urine Urine Culture - Final
Escherichia coli
09/20/24 10:44 Nasal Swab Influenza Types A & B (ALINA) - Final
Negative for Influenza A & B, NAAT
Negative results must be combined with clinical observations
and patient history.
Nucleic Acid Amplification test (NAAT)performed on the
[employer] NOW platform.
== END 2024-09-21 17:22 | disposition home health service (06) ==
LOC: 3 WEST ACU 17:26
PROVIDERS: Physician Assistant; Student in an Organized Health Care Education/Training Program; ADMITTING PHYSICIAN Internal Medicine; EMERGENCY PHYSICIAN Emergency Medicine; FAMILY PHYSICIAN Internal Medicine
DX: G92.8 Other toxic encephalopathy (principal); R55 Syncope and collapse; E11.9 Type 2 diabetes mellitus without complications; Z11.52 Encounter for screening for COVID-19; N39.0 Urinary tract infection, site not specified; M19.90 Unspecified osteoarthritis, unspecified site; I10 Essential (primary) hypertension; E03.9 Hypothyroidism, unspecified; J45.909 Unspecified asthma, uncomplicated; E78.00 Pure hypercholesterolemia, unspecified; G47.00 Insomnia, unspecified; G47.30 Sleep apnea, unspecified; Z66 Do not resuscitate; M71.21 Synovial cyst of popliteal space [Baker], right knee; E83.42 Hypomagnesemia; D64.9 Anemia, unspecified; Z60.2 Problems related to living alone; Z79.51 Long term (current) use of inhaled steroids
CPT/HCPCS: 70450; 72100; 73610; 80048; 80053; 81003; 81015; 82077; 82962; 83036; 83735; 85025; 85027; 87077; 87086; 87186; 87502; 87811; 93005; 93971; 94640; 96374; 96375; 97163; 99285; G0378

== ENCOUNTER 2024-11-05 14:26 | Emergency (ER) | payer MEDICARE, SELFPAY ==
[2024-11-05 14:31] VITALS: BP 138/68
--- NOTE | 2024-11-05 16:17 | ED.MUSCINJ ---
HPI-Injury
General
Chief Complaint: Fall
Source: patient
Exam Limitations: none
Time Seen by Provider: 11/05/24 15:45
Nursing documentation reviewed up to this point in time: agreed with
History of Present Illness-Injury
Initial Injury comments:
84-year-old female who states her rubber sole of her shoe caught on the floor in her kitchen this morning and she fell forward. Her daughter witnessed this, they were unable to get her up so they had to call the police to help her up. She was able
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 She is scheduled for a right knee replacement in December so she 'just wanted to get it checked.'
She also has mild pain across her shoulders. She denies hitting her head or any other injury.
Past History
Past History
ED Past Medical History: Asthma, GERD, HTN, Hypercholesterolemia, NIDDM, Hypothyroidism and Other (Sleep apnea, anemia)
ED Past Surgical History: Orthopedic (Left hip replacement July 28, 2021)
Social History
Tobacco: Non-smoker
Alcohol: Occasional
Drug: None
Personal:
Living: with family
Family History
Family History: Diabetes and CAD
Review of Systems
Review of Systems
Allergies reviewed?: Yes
All Other Systems: ROS reviewed and negative except as documented in HPI and ROS
Respiratory: Denies trouble breathing
Cardiac: Denies chest pain
ABD/GI: Denies abdominal pain
Musculoskeletal: Reports other (Pain right knee); Denies neck pain or back pain
Skin: Reports no symptoms
Neurological: Reports no symptoms
Phy Exam
Physical Exam
Physical Exam:
GENERAL: No acute distress. A&Ox3.
CONSTITUTIONAL: Afebrile.
EYES: clear, conjunctivae normal
ENMT: moist mucus membranes, Pharynx nl
RESPIRATORY: Regular respirations, nonlabored, lungs clear.
CARDIOVASCULAR: Regular rate and rhythm, no murmurs, no rubs.
GI: Soft, nontender, normal BS
MUSCULOSKELETAL: Minimal tenderness about the shoulders and anterior upper chest wall consistent with soft tissue mild strain. Mild swelling and general tenderness about the right knee. Adequate range of motion. moves with ease. Well perfused.
SKIN: Warm, dry, pink
PSYCH: Normal mood and affect. Well kept, interactive and appropriate
NEUROLOGIC: Awake, alert and oriented. No focal neurological deficits
Injury Course
Orders/Labs/Results
Orders:
Orders
11/05/24 14:35
CR Knee- Right 4 Or More View* Urgent
Comment:
Reason For Exam: fall, pain
MDM/Problems Addressed
MDM/Problems Addressed:
84-year-old female who states her rubber sole of her shoe caught on the floor in her kitchen this morning and she fell forward. Her daughter witnessed this, they were unable to get her up so they had to call the police to help her up. She was able
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 She is scheduled for a right knee replacement in December so she 'just wanted to get it checked.'
She also has mild pain across her shoulders. She denies hitting her head or any other injury.
Right knee x-ray radiology report read: IMPRESSION:
No acute fracture or dislocation. Mild tricompartmental osteoarthritis. Small suprapatellar joint effusion. Soft tissues are grossly unremarkable
Ronald wrap applied to the knee
When up and around she states her right hip is starting to ache, no indication for x-ray as it did not hurt initially and she has been ambulating well.
Patient have a bed and ambulating well with her walker as usual, states her leg does not feel unstable when she bears weight.
Refer to her orthopedic doctor as needed
*Critical Care Note
Total Time (30-74mins, 75-104mins- exclusive of procedures): Not Applicable
ED Attending Note
-
Portions of this chart may have been created with voice recognition software.� Occasional wrong word or��sound alike� substitutions may have occurred due to the inherent limitations of voice recognition software.
Discharge Plan
Departure
Patient Disposition: Home (Routine Discharge)
Date of Disposition: 11/05/24
Time of Disposition: 16:21
Patient with high blood pressure during this ER visit?: No
Condition: Good
Discharge Problem:
Fall from slip, trip, or stumble, Soft tissue injury of right knee, Muscle strain of chest wall, Strain of right hip
Instructions: Preventing falls in adults, Knee sprain, Muscle strain - ED discharge instructions
Prescriptions:
No Action
therapeutic multivitamin Tablet
1 tab PO DAILY Qty: 0
levothyroxine [Synthroid] 112 mcg Tablet
112 mcg PO MOTUWETHFRSA Qty: 0
albuterol sulfate 1 PUFF HFA aerosol inhaler
1 puff inhalation R Q4HPRN PRN (Reason: respiratory distress) Qty: 1 0RF
atorvastatin [Lipitor] 10 MG tablet
10 mg PO BID
lisinopril 20 MG tablet
20 mg PO DAILY
loratadine 10 MG tablet
10 mg PO DAILY
omeprazole 20 MG tablet,delayed release (DR/EC)
20 mg PO DAILY
calcium carbonate 600 MG tablet
600 mg PO DAILY
aspirin 81 mg Tablet,Delayed Release (Dr/Ec)
81 mg PO HS
alprazolam 0.25 mg Tablet
0.25 mg PO BIDPRN PRN (Reason: anxiety)
acetaminophen 325 mg Tablet
650 mg PO Q4 Qty: 0 0RF
polyethylene glycol 3350 17 gram Powder In Packet
17 g PO DAILYPRN PRN (Reason: constipation) Qty: 0 0RF
cephalexin 500 mg Capsule
500 mg PO BID 4 Days Qty: 8 0RF
ibuprofen 400 mg tablet
400 mg PO Q8H 3 Days Qty: 9 0RF
metformin 1,000 mg Tablet
1,000 mg PO BID Qty: 0 0RF
olopatadine 0.2 % Drops
1 drp BOTH EYES DAILY Qty: 0 0RF
Arnuity Ellipta 200 mcg/actuation Blister With Device
1 inh INHALATION R DAILY Qty: 0 0RF
Blink Tears 0.25 % Drops
1 drp ophthalmic (eye) TID Qty: 0 0RF
Rx Instructions:
both eyes
zolpidem 5 mg tablet
5 mg PO HS PRN (Reason: insomnia) Qty: 14 0RF
sulfamethoxazole-trimethoprim [Bactrim DS] 800-160 mg tablet
1 tab PO BID 3 Days Qty: 6 0RF
Rx Instructions:
Take 1 pill two times per day for the UTI. Stop taking the cephalexin antibiotic.
Referrals:
Your, orthopedic doctor [Other] - Keep scheduled appt
Anibal Chappell, DO [Family Provider] -
Activity Restrictions/Additional Instructions:
As we discussed, your right knee x-ray shows a mild amount of swelling but nothing broken.
Wear the Ronald wrap as needed for comfort, support and swelling. Apply cold compress to the area 20 minutes off and on throughout the day today and tomorrow is much as you can
Tylenol as needed for pain in the knee or the right hip.
If your knee swelling gets worse and your pain becomes worse see your orthopedic doctor or return here as it may need to be drained if a lot of fluid builds up.
Interventions
Interventions:
*Risk Screen - Suicide Last Done: 11/05/24 14:31
*General Assessment Last Done: 11/05/24 14:31
*Neglect/Abuse Screening Last Done: 11/05/24 14:31
*ED COVID-19 Vaccine History Last Done: 11/05/24 14:31
*Nursing Disposition Last Done: 11/05/24 17:39
ED-Musculoskeletal Assessment Last Done: 11/05/24 16:38
ED- Neurological Assessment Last Done: 11/05/24 16:38
ED-Skin Assessment Last Done: 11/05/24 16:38
Discharge Date and Time
Discharge Date/Time: 11/05/24 17:39
Print Language: IRISH
== END 2024-11-05 17:39 | disposition home or self-care (01) ==
LOC: EMR 14:26
PROVIDERS: EMERGENCY PHYSICIAN Student in an Organized Health Care Education/Training Program; FAMILY PHYSICIAN Internal Medicine
DX: S29.011A Strain of muscle and tendon of front wall of thorax, initial encounter (principal); S76.011A Strain of muscle, fascia and tendon of right hip, initial encounter; S89.81XA Other specified injuries of right lower leg, initial encounter; W01.0XXA Fall on same level from slipping, tripping and stumbling without subsequent striking against object, initial encounter
CPT/HCPCS: 99283; 73564

== ENCOUNTER → 2024-12-13 10:02 | Outpatient (REF) | payer MEDICARE, SELFPAY ==
[2024-12-13 11:36] LABS: Albumin 4.2 g/dl (3.5-5.0); Blood Urea Nitrogen 18 mg/dl (7-17); Calcium 9.5 mg/dl (8.4-10.2); Carbon Dioxide 24 mmol/L (22-30); Chloride 109 mmol/L (98-107); Glucose 141 mg/dl (70-99); HDL Cholesterol 65 mg/dl; LDL Cholesterol, Calculated 70 mg/dl; Magnesium 1.6 mg/dl (1.6-2.3); Phosphorus 3.8 mg/dl (2.5-4.5); Potassium 4.9 mmol/L (3.5-5.1); Sodium 140 mmol/L (135-145); Total Cholesterol 153 mg/dl (50-199); Triglyceride 93 mg/dl (10-149); Very Low Density Lipoprotein 18 mg/dl (0-30); eGFR > 60.00
[2024-12-13 12:02] LABS: Iron 80 ug/dl (37-170)
[2024-12-13 12:10] LABS: TSH 3.19 uIU/ml (0.47-4.68)
[2024-12-13 12:11] LABS: Percent Saturation 21 % (20-50); Total Iron Binding Capacity 378 ug/dl (265-497)
[2024-12-13 12:36] LABS: Ferritin 12.4 ng/ml (11.1-264.0)
[2024-12-13 12:51] LABS: Vitamin B12 309 pg/ml (239-931)
== END ==
LOC: OLAB 10:02
PROVIDERS: ATTENDING PHYSICIAN Internal Medicine
DX: E11.59 Type 2 diabetes mellitus with other circulatory complications (principal); K21.9 Gastro-esophageal reflux disease without esophagitis; E03.9 Hypothyroidism, unspecified; K44.9 Diaphragmatic hernia without obstruction or gangrene; L10.0 Pemphigus vulgaris
CPT/HCPCS: 36415; 80061; 80069; 82607; 82728; 83540; 83550; 83735; 84443

== ENCOUNTER 2025-01-06 08:53 | Inpatient (IN) | payer MEDICARE, SELFPAY ==
--- NOTE | 2024-11-11 12:21 | CM ---
Addendum entered by Sanjuana Vazquez RN 12/04/24 11:30:
CM received call from patient requesting when she would have her outpatient PAT scheduled.
Original Note:
CM reviewed medical records. CM spoke with patient via [employer] telephone. Patient confirmed demographics. Patient lives alone in a 55+ community. Patient's daughter will provide supervision post-operatively. Patient has had a history of [facility]. Patient
denied history of SNF. Patient is active with her PCP. Patient plans to use [facility] for medication services.
Patient was encouraged to make an appointment for her outpatient PT post operatively. Her chosen PT facility is [facility].
CM discussed encouraged hydration and bowel regiment pre-operatively.
PLAN: home with outpatient PT.
[2024-12-13 11:10] LABS: Hematocrit 33.0 % (37.0-47.0); Hemoglobin 10.7 g/dL (12.0-16.0); Mean Corp Hgb Conc. 32.4 g/dL (33.0-37.0); Mean Corpuscular Volume 87.1 fL (81.0-99.0); Nucleated Red Blood Cells % 0 %; Platelet Count 211 10^3/uL (130-400); Red Cell Dist. Width 13.5 % (11.5-14.5)
[2024-12-13 11:23] LABS: Glycohemoglobin (HgbA1c) 7.7 % (4.0-5.6)
[2024-12-13 11:35] LABS: ALT (SGPT) 15 U/L (0-35); AST (SGOT) 18 U/L (14-36); Albumin 4.2 g/dl (3.5-5.0); Alkaline Phosphatase 58 U/L (38-126); Blood Urea Nitrogen 17 mg/dl (7-17); Calcium 9.7 mg/dl (8.4-10.2); Carbon Dioxide 26 mmol/L (22-30); Chloride 109 mmol/L (98-107); Glucose 143 mg/dl (70-99); Potassium 4.9 mmol/L (3.5-5.1); Sodium 142 mmol/L (135-145); Total Protein 6.6 g/dl (6.3-8.2); eGFR > 60.00
[2024-12-13 13:52] VITALS: BMI 33.5
[2024-12-13 14:34] VITALS: BMI 33.5
--- NOTE | 2024-12-13 15:01 | W.PN.UPDATE ---
Update Note
Progress Note Update
Discussion re A1C 7.7. She is instructed strict diet control and will discuss this with PCP.
Hgb 10.7-at baseline-B12 and iron panel in range.
[2025-01-06] VITALS (12 sets, daily range): BP systolic 108–179; BP diastolic 58–102; BMI 33.5
[2025-01-06] MEDS: NORMOSOL-R/PLASMALYTE-A 1000 IV ×3 (09:04→17:30)
[2025-01-06] MEDS: CELEBREX 200 MG PO (09:17)
[2025-01-06] MEDS: TYLENOL 650 MG PO ×3 (09:17→20:48)
--- NOTE | 2025-01-06 09:29 | PTCARENOTE ---
Patient fell on Monday and went to urgent care for sustaining pain to the L ribs, R elbow, R knee and abrasion between the eyes. Both Surgeon and Anesthesia aware. No further orders. Fall risk bracelet applied. Will monitor patient.
[2025-01-06 10:22] LABS: Glucose - Point of Care 156 mg/dl (70-99)
--- NOTE | 2025-01-06 11:45 | W.PN.ORTHO ---
Today's Communication / Plan
-
d/c when stable
Assessment
.
Dressing:
Clean, dry and intact.
Assessment:
Hx p/o delerium--([place] w/ Ambien)--minimize opioid to 1 Oxy 5mg q6h w/ multimodal pain approach-Meloxicam, Decadron, Toradol, low dose Gabapentin-GI ppx
Anemia-renal function, iron and B12 stores in range-monitor hgb
NIDDM-add Lantus due to need for brief steroid in setting of surgical stress
Plan
.
Surgery / Date: R CARMEN Bryant 01/06/25
DVT Prophylaxis: Aspirin
Activity:
Out of bed.
PT/OT
Discharge Plan: Home w/ Outpatient PT
Vital Signs and Labs
.
Vital Signs and Labs:
Lab Results
12/13/24 10:25
12/13/24 10:25
Temp Pulse Resp BP Pulse Ox
97.8 F 79 16 156/68 95
01/06/25 08:54 01/06/25 08:54 01/06/25 08:54 01/06/25 08:54 01/06/25 08:54
--- NOTE | 2025-01-06 12:16 | W.DS.TRANS ---
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
-
Discharge Instructions:
Discharge Diagnosis/Procedures R TKA Dr. Bryant 01/06/25
Diet Diabetic, Carb Controlled
Driving Restrictions No driving
Bathing Restrictions OK to Shower
Other Services PT
Instructions:
Stand-Alone Forms: Total Hip/Knee Replacement D/C
Changes to Home Medications: Yes
Discharge Medications:
DC Medications w/original date entered in [employer]
levothyroxine 112 mcg tablet (Synthroid) 112 mcg PO MOTUWETHFRSA Thyroid ##0 10/11/11
therapeutic multivitamin 1 tab PO DAILY Supplement ##0 10/11/11
atorvastatin 10 mg tablet (Lipitor) 10 mg PO DAILY High cholesterol 07/07/21
calcium carbonate 600 mg PO DAILY Supplement 07/07/21
loratadine 10 mg tablet 10 mg PO DAILY Allergies 07/07/21
omeprazole 20 mg tablet,delayed release 20 mg PO DAILY Gastrointestinal issue 07/07/21
alprazolam 0.25 mg tablet 0.25 mg PO BIDPRN PRN anxiety 09/20/24
fluticasone furoate 200 mcg/actuation blister powder for inhalation (Arnuity Ellipta) 1 inh inhalation R DAILY Lung/breathing issues #0 ea 09/21/24
metformin 1,000 mg tablet 1,000 mg PO BID Diabetes #0 tabs 09/21/24
olopatadine 0.2 % eye drops 1 drp BOTH EYES DAILY Eye condition #0 mL 09/21/24
albuterol sulfate 90 mcg/actuation aerosol inhaler 1 puff inhalation Q4HPRN PRN respiratory distress 12/12/24
gabapentin 100 mg tablet 100 mg PO HS 12/12/24
polyethylene glycol 400 0.25 % eye drops (Blink Tears) 1 drp ophthalmic (eye) DAILY Eye condition 12/12/24
trazodone 50 mg tablet 25 mg PO HS PRN sleep 12/12/24
cefadroxil 500 mg capsule 500 mg PO BID infection prevention #14 caps 12/13/24
celecoxib 200 mg capsule 200 mg PO DAILY Anti-inflammatory #14 caps 12/13/24
famotidine 20 mg tablet 20 mg PO HS GI prophylaxis #30 tabs 12/13/24
mupirocin 2 % topical ointment 1 applic topical BID infection prevention #1 tube 12/13/24
oxycodone 5 mg tablet 5 mg PO Q6H PRN moderate-severe pain #30 tabs 12/13/24
Saccharomyces boulardii 250 mg capsule (Florastor) 250 mg PO BID #1 cap 01/06/25
acetaminophen 325 mg tablet 650 mg (2 x 325 mg) PO QID Pain #0 tabs 01/06/25
aspirin 325 mg tablet 325 mg PO DAILY blood clot prevention #1 tab 01/06/25
docusate sodium 100 mg capsule (Colace) 100 mg PO BID stool softner #1 cap 01/06/25
lisinopril 20 mg tablet 20 mg PO DAILY Blood pressure #0 tabs 01/06/25
magnesium hydroxide 400 mg/5 mL oral suspension (Milk of Magnesia) 30 ml PO HS PRN constipation #1 mL 01/06/25
sennosides 8.6 mg tablet (Senokot) 17.2 mg (2 x 8.6 mg) PO BID laxative #2 tabs 01/06/25
Home Medication Changes
cefadroxil 500 mg capsule 500 mg PO BID infection prevention #14 caps 12/13/24
celecoxib 200 mg capsule 200 mg PO DAILY Anti-inflammatory #14 caps 12/13/24
famotidine 20 mg tablet 20 mg PO HS GI prophylaxis #30 tabs 12/13/24
mupirocin 2 % topical ointment 1 applic topical BID infection prevention #1 tube 12/13/24
oxycodone 5 mg tablet 5 mg PO Q6H PRN moderate-severe pain #30 tabs 12/13/24
Saccharomyces boulardii 250 mg capsule (Florastor) 250 mg PO BID #1 cap 01/06/25
acetaminophen 325 mg tablet 650 mg (2 x 325 mg) PO QID Pain #0 tabs 01/06/25
aspirin 325 mg tablet 325 mg PO DAILY blood clot prevention #1 tab 07/14/25
docusate sodium 100 mg capsule (Colace) 100 mg PO BID stool softner #1 cap 01/06/25
lisinopril 20 mg tablet 20 mg PO DAILY Blood pressure #0 tabs 01/06/25
magnesium hydroxide 400 mg/5 mL oral suspension (Milk of Magnesia) 30 ml PO HS PRN constipation #1 mL 01/06/25
sennosides 8.6 mg tablet (Senokot) 17.2 mg (2 x 8.6 mg) PO BID laxative #2 tabs 01/06/25
Pending Results: No
[2025-01-06 12:49] LABS: Glucose - Point of Care 140 mg/dl (70-99)
[2025-01-06] MEDS: ROXICODONE 5 MG PO (13:27)
[2025-01-06 14:29] LABS: Glucose - Point of Care 159 mg/dl (70-99)
[2025-01-06] MEDS: LIPITOR PO (16:20)
[2025-01-06] MEDS: CLARITIN PO (16:20)
[2025-01-06] MEDS: LANTUS 0.06 UNITS SC (16:21)
[2025-01-06] MEDS: NOVOLOG FLEXPEN-MODERATE RESISTANCE 1 UNITS SC (16:22)
[2025-01-06] MEDS: GLUCOPHAGE 1000 MG PO (16:24)
[2025-01-06] MEDS: ASPIRIN 325 MG PO (16:24)
[2025-01-06 17:21] LABS: Glucose - Point of Care 191 mg/dl (70-99)
[2025-01-06] MEDS: NOVOLOG FLEXPEN 4 UNITS SC (17:28)
[2025-01-06] MEDS: ANCEF 5 IV (17:29)
--- NOTE | 2025-01-06 18:08 | PTCARENOTE ---
1351 pt return to floor had spinal with canal block EBL 5mls, AOx3 slightly drowsy T pedals, decreased sensation to foot, can barely wiggle toes. can be incontinent, pads added to bed. RH 20 with Normr 100. 1800 ADA diet BS 153. Bed low, call lopez
in reach, HOB elevated Daughter and son present.
[2025-01-06] MEDS: FLOVENT 110 MCG INHALER 2 PUFF INH (20:13)
[2025-01-06] MEDS: BACTROBAN 2% OINTMENT 1 APPLIC NASAL (20:48)
[2025-01-06] MEDS: TORADOL 15 MG IV (20:48)
[2025-01-06] MEDS: DECADRON 4 MG IV (20:48)
[2025-01-06] MEDS: PROTONIX 40 MG PO (20:49)
[2025-01-06] MEDS: NEURONTIN 100 MG PO (20:49)
[2025-01-06 22:15] LABS: Glucose - Point of Care 229 mg/dl (70-99)
[2025-01-07] MEDS: TYLENOL PO ×3 (00:48→03:12)
[2025-01-07 03:00] VITALS: BP 146/61
[2025-01-07] MEDS: ANCEF 5 IV (03:00)
[2025-01-07] MEDS: SYNTHROID 112 MCG PO (06:35)
[2025-01-07] MEDS: FLOVENT 110 MCG INHALER 2 PUFF INH (07:23)
[2025-01-07 07:53] LABS: Glucose - Point of Care 195 mg/dl (70-99)
[2025-01-07 07:55] VITALS: BP 127/52
[2025-01-07] MEDS: GLUCOPHAGE 1000 MG PO (08:00)
[2025-01-07] MEDS: CLARITIN 10 MG PO (08:00)
[2025-01-07] MEDS: ASPIRIN 325 MG PO (08:01)
[2025-01-07] MEDS: MOBIC 15 MG PO (08:01)
[2025-01-07] MEDS: LANTUS 0.06 UNITS SC (08:01)
[2025-01-07] MEDS: TYLENOL 650 MG PO ×2 (08:02→11:34)
[2025-01-07] MEDS: TORADOL 15 MG IV (08:02)
[2025-01-07] MEDS: LIPITOR 10 MG PO (08:03)
[2025-01-07] MEDS: BACTROBAN 2% OINTMENT 1 APPLIC NASAL (08:03)
[2025-01-07] MEDS: DECADRON 4 MG IV (08:03)
[2025-01-07] MEDS: NOVOLOG FLEXPEN 4 UNITS SC (08:04)
[2025-01-07] MEDS: NOVOLOG FLEXPEN-MODERATE RESISTANCE 1 UNITS SC (08:04)
[2025-01-07] MEDS: OLOPATADINE 0.1% OPHTHALMIC SOLUTION 1 DROP OPHTH (08:05)
--- NOTE | 2025-01-07 08:39 | CM ---
Cm met with patient. CM confirmed patient's PT appointment with Manohar Galvan on 01/08. Patient confirmed family will drive her. CM will remain available as needed.
PLAN: home with outpatient PT and family support.
[2025-01-07] MEDS: ROXICODONE 5 MG PO (09:00)
[2025-01-07 09:23] VITALS: BP 147/65; PULSE 69; O2SAT 98
[2025-01-07 09:55] VITALS: BP 147/65; PULSE 76; O2SAT 98
--- NOTE | 2025-01-07 10:41 | W.PN.ORTHO ---
Today's Communication / Plan
-
d/c
Assessment
.
Distal Motor Intact: Yes
Dressing:
Clean, dry and intact.
Assessment:
R foot drop due to nerve block/spinal-pation functionally stable mod I RW-f/u ortho
Hx p/o delerium--([place] w/ Ambien)--minimize opioid to 1 Oxy 5mg q6h w/ multimodal pain approach-Meloxicam, Decadron, Toradol, low dose Gabapentin-GI ppx-no incidence this visit
Anemia-renal function, iron and B12 stores in range-hgb stable
NIDDM-add Lantus due to need for brief steroid in setting of surgical stress-sugars stable
Plan
.
Surgery / Date: R TKA Dr. Bryant 01/06/25
DVT Prophylaxis: Aspirin
Activity:
Out of bed.
PT/OT
Discharge Plan: Home w/ Outpatient PT
Subjective
.
.:
Patient resting comfortably.
Vital Signs and Labs
.
Vital Signs and Labs:
Lab Results
12/13/24 10:25
12/13/24 10:25
Temp Pulse Resp BP Pulse Ox
98.2 F 63 18 127/52 98
01/07/25 07:55 01/07/25 07:55 01/07/25 07:55 01/07/25 08:06 01/07/25 07:55
Non-invasive Hgb result: 11.3
Physical Exam
-
HEENT: No pallor, cyanosis, or jaundice. Throat clear.
NECK: Supple. No JVD.
RESPIRATORY: Lungs clear to auscultation.
CVS: S1, S2 normal. RRR.� No murmur, rub or gallop.
ABDOMEN: Soft, non-tender. No distension. BS+/normal.
EXTREMITIES: strength equal, no calf pain with palpation--R foot drop
PLANT BUYER: AOx3. No focal deficits. chapter relations administrator grossly intact
== END 2025-01-07 12:05 | disposition home or self-care (01) | DRG 470 ==
LOC: 2 SOUTH 08:53
PROVIDERS: ADMITTING PHYSICIAN Specialist; FAMILY PHYSICIAN Internal Medicine
PROC: 0SRC0J9 Replacement of Right Knee Joint with Synthetic Substitute, Cemented, Open Approach (ICD-10-PCS; 2025-01-06)
DX: M17.11 Unilateral primary osteoarthritis, right knee (principal); E66.9 Obesity, unspecified; Z68.33 Body mass index [BMI] 33.0-33.9, adult; I10 Essential (primary) hypertension; E78.5 Hyperlipidemia, unspecified; K21.9 Gastro-esophageal reflux disease without esophagitis; E11.9 Type 2 diabetes mellitus without complications; G47.33 Obstructive sleep apnea (adult) (pediatric); J45.20 Mild intermittent asthma, uncomplicated; J98.4 Other disorders of lung; K22.4 Dyskinesia of esophagus; M85.80 Other specified disorders of bone density and structure, unspecified site; M21.371 Foot drop, right foot; T41.3X5A Adverse effect of local anesthetics, initial encounter; G47.00 Insomnia, unspecified; E03.9 Hypothyroidism, unspecified; D64.9 Anemia, unspecified; D50.9 Iron deficiency anemia, unspecified; F41.9 Anxiety disorder, unspecified; Z79.84 Long term (current) use of oral hypoglycemic drugs; Z79.82 Long term (current) use of aspirin
CPT/HCPCS: 36415; 73560; 80053; 82962; 83036; 85025; 86850; 86900; 86901; 87070; 93005; 94640; 97110; 97116; 97166; 97530; 97535; C1713; C1776

== ENCOUNTER 2025-01-09 02:36 | Emergency (ER) | payer MEDICARE, SELFPAY ==
[2025-01-09 02:45] VITALS: BP 166/72; BMI 35.6
[2025-01-09 03:00] VITALS: BP 159/59
[2025-01-09 04:00] VITALS: BP 156/64
[2025-01-09] MEDS: ROXICODONE 5 MG PO (04:56)
[2025-01-09 05:19] LABS: Hematocrit 29.5 % (37.0-47.0); Hemoglobin 9.7 g/dL (12.0-16.0); Mean Corp Hgb Conc. 32.9 g/dL (33.0-37.0); Mean Corpuscular Volume 86.0 fL (81.0-99.0); Nucleated Red Blood Cells % 0 %; Platelet Count 206 10^3/uL (130-400); Red Cell Dist. Width 13.8 % (11.5-14.5)
[2025-01-09 05:43] LABS: Blood Urea Nitrogen 20 mg/dl (7-17); Calcium 9.2 mg/dl (8.4-10.2); Carbon Dioxide 23 mmol/L (22-30); Chloride 107 mmol/L (98-107); Estimated Creatinine Clearance 59 ml/min; Glucose 131 mg/dl (70-99); Potassium 4.3 mmol/L (3.5-5.1); Sodium 137 mmol/L (135-145); eGFR > 60.00
--- NOTE | 2025-01-09 05:53 | ED.GENMED ---
History of Present Illness
General
Chief Complaint: Musculo-Skeletal Complaint
Source: patient and family
Exam Limitations: none
Time Seen by Provider: 01/09/25 04:36
Nursing documentation reviewed up to this point in time: agreed with
History of Present Illness
History of Present Illness:
84-year-old female presenting to the emergency department with multiple vague symptoms initially symptom started with right-sided knee pain. Did have surgery 2 days ago with a total knee replacement. Has had ongoing pain to the right knee.
Additionally felt some lightheadedness and weakness today which prompted her to call EMS and come to the ER. During my assessment she claims that symptoms are significantly improved. Denies any specific fevers vomiting, abdominal pain chest pain
or shortness of breath.
Past History
Past History
ED Past Medical History: Asthma, GERD, HTN, Hypercholesterolemia, NIDDM, Hypothyroidism and Other (Sleep apnea, anemia)
ED Past Surgical History: Orthopedic (Left hip replacement July 28, 2021)
Social History
Tobacco: Non-smoker
Alcohol: Occasional
Drug: None
Personal:
Living: with family
Family History
Family History: Diabetes and CAD
Review of Systems
Review of Systems
Allergies reviewed?: Yes
All Other Systems: ROS reviewed and negative except as documented in HPI and ROS
Phy Exam
Physical Exam
Physical Exam:
GENERAL: Alert , in no apparent distress
EYE: pupils equal and reactive
NECK: Supple, no significant adenopathy.
ENT: o/p clr, mmm.
CARDIAC: Regular rate and rhythm .
LUNGS: Clear breath sounds bilaterally, no acute respiratory distress, no wheezes/rales/rhonchi
ABDOMEN: Soft, without focal tenderness, no r/g, no cvat
NEUROLOGICAL: Alert and oriented, no focal neuro deficits
SKIN: Warm and dry, skin intact.
MUSCULOSKELETAL: Swelling to the right leg diffusely. Surgical site without significant redness or warmth., well perfused.
PSYCH: Normal and appropriate interaction.
Course
Orders/Labs/Results
Orders:
Orders
01/09/25 04:46
EKG [Electrocardiogram (*1)] Urgent
Reason for Study: Fatigue / Weakness
EKG- Treatment ONCE
Oxycodone [Roxicodone] 5 mg PO NOW STA
Venous Doppler Lwr Ext Rt [US Periph Venous LOWER Ext RT] Urgent
Comment:
Reason For Exam: right leg surgery, leg swelling
01/09/25 05:01
BMP [Basic Metabolic Panel] Urgent
CBC/With Diff [Complete Blood Count/With Diff] Urgent
01/09/25 05:52
Urinalysis Reflex To Culture Urgent
Date Specimen was Collected: 01/09/25
Time Specimen was Collected: 05:24
Abnormal Lab Results
01/09/25
05:01
RBC 3.43 L 10^6/uL
(4.20-5.40)
Hgb 9.7 L g/dL
(12.0-16.0)
Hct 29.5 L %
(37.0-47.0)
MCHC 32.9 L g/dL
(33.0-37.0)
Absolute Monos (auto) 0.9 H 10^3/uL
(0.1-0.6)
Monocytes % 10.1 H %
(1.7-9.3)
BUN 20 H mg/dl
(7-17)
Glucose 131 H mg/dl
(70-99)
01/09/25 05:01
01/09/25 05:01
Vital Signs
Initial and Last Documented VS:
Initial Vital Signs
Temp Pulse Resp BP Pulse Ox
98.0 F 78 16 166/72 99
01/09/25 02:45 01/09/25 02:45 01/09/25 02:45 01/09/25 02:45 01/09/25 02:45
Last Documented Vital Signs
Temp Pulse Resp BP Pulse Ox
98.0 F 78 16 156/64 99
01/09/25 02:45 01/09/25 02:45 01/09/25 02:45 01/09/25 04:00 01/09/25 05:55
MDM/Problems Addressed
MDM/Problems Addressed:
84-year-old female presenting with concerns of multiple symptoms 2 days after total knee replacement. On arrival blood pressure elevated otherwise vital signs are normal. Labs are obtained which did not show any acute abnormalities other than
slightly elevated BUN to creatinine ratio. EKG without significant changes. Ultrasound without evidence of DVT. Patient here very comfortable at this point stable for outpatient management close outpatient follow-up. Return precautions given.
*Pulse Oximetry
SaO2: 99
Oxygen Mode of Delivery: Room air
Patient hypoxic: no (99)
*Critical Care Note
Total Time (30-74mins, 75-104mins- exclusive of procedures): Not Applicable
ED Attending Note
-
Portions of this chart may have been created with voice recognition software.� Occasional wrong word or��sound alike� substitutions may have occurred due to the inherent limitations of voice recognition software.
Discharge Plan
Departure
Patient Disposition: Home (Routine Discharge)
Date of Disposition: 01/09/25
Time of Disposition: 06:22
Patient with high blood pressure during this ER visit?: No
Condition: Good
Covid-19: Not Applicable
Discharge Problem:
Leg pain
Prescriptions:
No Action
therapeutic multivitamin Tablet
1 tab PO DAILY Qty: 0
levothyroxine [Synthroid] 112 mcg Tablet
112 mcg PO MOTUWETHFRSA Qty: 0
atorvastatin [Lipitor] 10 MG tablet
10 mg PO DAILY
loratadine 10 MG tablet
10 mg PO DAILY
omeprazole 20 MG tablet,delayed release (DR/EC)
20 mg PO DAILY
calcium carbonate 600 MG tablet
600 mg PO DAILY
alprazolam 0.25 mg Tablet
0.25 mg PO BIDPRN PRN (Reason: anxiety)
metformin 1,000 mg Tablet
1,000 mg PO BID Qty: 0 0RF
olopatadine 0.2 % Drops
1 drp BOTH EYES DAILY Qty: 0 0RF
Arnuity Ellipta 200 mcg/actuation Blister With Device
1 inh INHALATION R DAILY Qty: 0 0RF
trazodone 50 mg Tablet
25 mg PO HS PRN (Reason: sleep)
gabapentin 100 mg Tablet
100 mg PO HS
albuterol sulfate 1 PUFF HFA aerosol inhaler
1 puff inhalation Q4HPRN PRN (Reason: respiratory distress)
Rx Instructions:
Can take every 4-6 hours prn
Blink Tears 0.25 % drops
1 drp ophthalmic (eye) DAILY
Rx Instructions:
both eyes
mupirocin 2 % ointment
1 applic topical BID Qty: 1 0RF
Patient Comments:
applied this am 01/06/25
celecoxib 200 mg capsule
200 mg PO DAILY Qty: 14 0RF
Patient Comments:
for post op
Rx Instructions:
*POST-OP USE ONLY
*take with food
famotidine 20 mg tablet
20 mg PO HS Qty: 30 0RF
Patient Comments:
for post op
Rx Instructions:
post-op
oxycodone 5 mg tablet
5 mg PO Q6H PRN (Reason: moderate-severe pain) Qty: 30 0RF
Patient Comments:
for post op
Rx Instructions:
Ongoing therapy
POST-OP USE ONLY
cefadroxil 500 mg capsule
500 mg PO BID Qty: 14 0RF
Patient Comments:
for post op
Rx Instructions:
*Take w/ food
*Take w/ probiotic
*POST-OP USE
aspirin 325 mg tablet
325 mg PO DAILY Qty: 1 0RF
Rx Instructions:
Take with food
docusate sodium [Colace] 100 mg capsule
100 mg PO BID Qty: 1 0RF
Saccharomyces boulardii [Florastor] 250 mg capsule
250 mg PO BID Qty: 1 0RF
magnesium hydroxide [Milk of Magnesia] 400 mg/5 mL suspension
30 ml PO HS PRN (Reason: constipation) Qty: 1 0RF
Rx Instructions:
continue taking colace and senokot as advised--if no bowel movement 1 day after surgery -add milk of mag
sennosides [Senokot] 8.6 mg tablet
17.2 mg PO BID Qty: 2 0RF
acetaminophen 325 mg Tablet
650 mg PO QID Qty: 0 0RF
lisinopril 20 MG tablet
20 mg PO DAILY Qty: 0 0RF
Rx Instructions:
HOLD SYSTOLIC BLOOD PRESSURE <135 IF TAKING OXY
Referrals:
Anibal Chappell, DO [Family Provider, Internal Medicine]
Activity Restrictions/Additional Instructions:
You came to the emergency department today with concerns of multiple symptoms. Here you have a reassuring assessment. Please feel closely with the primary care doctor and orthopedic doctor. Return for any worsening, new or concerning symptoms.
Interventions
Interventions:
*Risk Screen - Suicide Last Done: 01/09/25 02:45
*General Assessment Last Done: 01/09/25 02:45
*Neglect/Abuse Screening Last Done: 01/09/25 02:45
ED-Musculoskeletal Assessment Last Done: 01/09/25 02:50
Discharge Date and Time
Print Language: BRITISH
[2025-01-09 06:08] LABS: Urine Character Clear (Clear)
== END 2025-01-09 06:49 | disposition home or self-care (01) ==
LOC: EMR 02:36
PROVIDERS: Physician Assistant; EMERGENCY PHYSICIAN Emergency Medicine; FAMILY PHYSICIAN Internal Medicine
DX: M79.604 Pain in right leg (principal); R22.41 Localized swelling, mass and lump, right lower limb; R42 Dizziness and giddiness; R53.1 Weakness; J45.909 Unspecified asthma, uncomplicated; K21.9 Gastro-esophageal reflux disease without esophagitis; I10 Essential (primary) hypertension; E03.9 Hypothyroidism, unspecified; E11.9 Type 2 diabetes mellitus without complications; E78.00 Pure hypercholesterolemia, unspecified; G47.30 Sleep apnea, unspecified; Z82.49 Family history of ischemic heart disease and other diseases of the circulatory system; Z83.3 Family history of diabetes mellitus; Z96.642 Presence of left artificial hip joint; Z96.651 Presence of right artificial knee joint
CPT/HCPCS: 99284; 80048; 81003; 85025; 93005; 93971

== ENCOUNTER → 2025-03-21 10:32 | Outpatient (REF) | payer MEDICARE, SELFPAY | LOC: EMG 10:32 | PROVIDERS: ATTENDING PHYSICIAN Internal Medicine | DX: M79.2 Neuralgia and neuritis, unspecified (principal); R20.0 Anesthesia of skin | CPT/HCPCS: 95886; 95910 ==

== ENCOUNTER → 2025-05-23 10:19 | Outpatient (REF) | payer MEDICARE, SELFPAY | LOC: HWWDC 10:19 | PROVIDERS: ATTENDING PHYSICIAN Internal Medicine | DX: Z12.31 Encounter for screening mammogram for malignant neoplasm of breast (principal) | CPT/HCPCS: 77063; 77067 ==